=== PATIENT | female | born 1950 | race Caucasian/White ===

== ENCOUNTER 2016-06-29 10:30 | Inpatient (IN) | payer OTHER ==
[~2016-06-29] VITALS: Ht 167.6 cm; Wt 91.4 kg
[~2016-06-29 10:30] MED LIST: CLONIDINE; METFORMIN
[2016-07-06] VITALS (30 sets, daily range): BP systolic 102–168; BP diastolic 61–78; PULSE 82–98; RESP 10–18; Ht 167.6 cm; Wt 91.4 kg
[2016-07-06] MEDS ORDERED: AMPICILLIN/SULB 3 GM/NS (PMX) 100 ML IVPB ONE (07:00)
[2016-07-06] MEDS ORDERED: ACETAMINOPHEN 1000 MG/100 ML IVPB ONE (07:00)
[2016-07-06] MEDS ORDERED: ETOMIDATE 20 MG INJ ONE (07:00)
[2016-07-06 08:26] LABS: BASOPHILS % 0.6 % (0.0-2.0); EOSINOPHILS # 0.3 10^3/ul (0.0-0.5); EOSINOPHILS % 3.9 % (0.0-7.0); HEMATOCRIT 31.1 % (37.0-47.0); HEMOGLOBIN 10.6 g/dl (12.0-16.0); INR 1.03; LYMPHOCYTES # 1.4 10^3/ul (0.8-2.9); LYMPHOCYTES % 15.7 % (15.0-51.0); MEAN CORPUSCULAR HEMOGLOBIN 28.7 pg (29.0-33.0); MEAN CORPUSCULAR VOLUME 84.5 fl (82.0-101.0); MEAN PLATELET VOLUME 8.3 fl (7.4-10.4); MONOCYTE # 0.5 10^3/ul (0.3-0.9); NEUTROPHIL # 6.4 10^3/ul (1.6-7.5); NEUTROPHILS % 73.8 % (39.0-77.0); PLATELET COUNT 332 10^3/UL (140-440); PROTIME 13.5 Sec (12.2-14.2); PT RATIO 1.1; RED BLOOD COUNT 3.68 10^6/ul (4.20-5.40); RED CELL DISTRIBUTION WIDTH 15.2 % (11.5-14.5); UNCORRECTED WBC 8.6 10^3/ul (4.8-10.8); WHITE BLOOD COUNT 8.6 10^3/ul (4.8-10.8)
[2016-07-06 08:27] LABS: PARTIAL THROMBOPLASTIN TIME 29.1 Sec (25.0-35.0)
[2016-07-06] MEDS ORDERED: AMLO-145 PO (08:37)
[2016-07-06] MEDS ORDERED: NIFE60TA7 PO (08:37)
[2016-07-06] MEDS ORDERED: METF1000 PO (08:37)
[2016-07-06] MEDS ORDERED: GLU5XL PO (08:37)
[2016-07-06] MEDS ORDERED: LEVO50TA74 PO (08:37)
[2016-07-06] MEDS ORDERED: CLON-379 PO (08:37)
[2016-07-06] MEDS ORDERED: LOVA40TA PO (08:37)
[2016-07-06 08:39] LABS: CONDITION 1; LH ANALYZER COMMENTS 1
[2016-07-06] MEDS ORDERED: MIDAZOLAM 1 MG/ML 2 ML INJ ONE (08:58)
[2016-07-06] MEDS ORDERED: ROCURONIUM 50 MG INJ ONE (08:58)
[2016-07-06] MEDS ORDERED: PROPOFOL 100 ML ONE (08:58)
[2016-07-06] MEDS ORDERED: morphine SULFATE/PF (10 MG/10 ML) INJ ONE (08:58)
[2016-07-06 09:00] LABS: CALCIUM 9.7 mg/dl (8.4-10.2); CREATININE 1.01 mg/dl (0.44-1.00); POTASSIUM 4.5 mmol/L (3.5-5.1)
[2016-07-06] MEDS ORDERED: ESMOLOL 10 ML ONE (09:36)
--- NOTE | 2016-07-06 09:38 | RADRPT ---
PROCEDURE: XR Chest AP portable CLINICAL INDICATION: Preop TECHNIQUE: An AP portable radiograph of the chest was submitted. COMPARISON: None. FINDINGS: Support Hardware: None Cardiovascular: The cardiovascular silhouette appears unremarkable. Lung Tabares: The lung tabares appear clear with no nodule, alveolar infiltrate, for a interstitial pr ominence evident. Pleural Spaces: No pneumothorax or pleural effusion is identified. Osseous Structures: The osseous structures appear intact. Soft Tissues: The soft tissues appear generous. IMPRESSION: Unremarkable portable chest. Physician Jackie Date Time Electronically viewed and signed by Chico Rothman Physician on 07/06/2016 09:38 RH/
[2016-07-06] MEDS: SOD CHLORIDE 0.9% 1,000 ML IV SCH ×2 (10:08→20:06)
[2016-07-06] MEDS ORDERED: PHENYLephrine (100 MCG/ML) 5ML SYG ONE ×2 (10:08→10:49)
[2016-07-06] MEDS ORDERED: ROPIVACAINE 0.2% 20 ML VIAL ONE (10:31)
[2016-07-06] MEDS ORDERED: FAMOTIDINE 20 MG INJ ONE (11:17)
[2016-07-06] MEDS ORDERED: ONDANSETRON 4 MG INJ ONE (11:17)
[2016-07-06] MEDS ORDERED: METOCLOPRAMIDE 10 MG INJ ONE (11:17)
[2016-07-06] MEDS ORDERED: DEXAMETHASONE 4 MG/ML 1 ML INJ ONE (11:17)
[2016-07-06] MEDS ORDERED: NEOSTIGMINE 3 MG/3 ML SYRINGE ONE (11:39)
[2016-07-06] MEDS ORDERED: GLYCOPYRROLATE 0.4 MG INJ ONE (11:39)
[2016-07-06] MEDS ORDERED: hydrALAzine 20 MG INJ IV PRN ×2 (12:00→13:30)
[2016-07-06] MEDS ORDERED: EPHEDrine SULFATE 50 MG/5 ML SYG IV PRN (12:00)
[2016-07-06] MEDS ORDERED: morphine 1 MG/ML 30 ML (PCA) IV SCH (12:00)
[2016-07-06] MEDS ORDERED: ONDANSETRON 4 MG INJ IV PRN ×3 (12:00)
[2016-07-06] MEDS ORDERED: NALBUPHINE HCL (10 MG/1 ML) INJ IV PRN (12:00)
[2016-07-06] MEDS ORDERED: morphine (1 MG/ML) 10ML SYRINGE IV PRN ×3 (12:00)
[2016-07-06] MEDS ORDERED: ALBUMIN HUMAN 5% 250 ML IV PRN (12:00)
[2016-07-06] MEDS ORDERED: HYDROmorphONE 1 MG/ML SYG IV PRN ×2 (12:00)
[2016-07-06] MEDS ORDERED: METOCLOPRAMIDE 10 MG INJ IV PRN (12:00)
[2016-07-06] MEDS ORDERED: NALOXONE (0.4 MG/ML) INJ IV PRN (12:00)
[2016-07-06] MEDS ORDERED: LABETALOL HCL 20MG INJ IV PRN (12:00)
[2016-07-06] MEDS ORDERED: morphine 4 MG/ML VIAL IV PRN (12:00)
[2016-07-06] MEDS ORDERED: morphine 2 MG INJ IV PRN (12:00)
[2016-07-06] MEDS ORDERED: ACETAMINOPHEN 1000MG/100ML IV 100 ML IVPB PRN (12:00)
[2016-07-06] MEDS ORDERED: DIPHENHYDRAMINE 50 MG INJ IV PRN ×2 (12:00)
[2016-07-06] MEDS ORDERED: HYDROmorphONE (0.2 MG/ML) 10ML SYG IV PRN ×3 (12:00)
[2016-07-06] MEDS: FENTAnyl 2MCG/ML-ROPIV 0.2% 100 ML BAG EPI SCH (12:50)
--- NOTE | 2016-07-06 12:55 | OPR ---
DATE OF OPERATION: 07/06/2016 PREOPERATIVE DIAGNOSIS: Nearly obstructing left colon cancer. POSTOPERATIVE DIAGNOSIS: Nearly obstructing left colon cancer. OPERATION PERFORMED: Left colon resection with mobilization of the splenic flexure. SURGEON: Jacinto Grant MD SCREEN PRINTING PASTER: Sandor Purvis MD ANESTHESIA: General. ANESTHESIOLOGIST: Dr. More INDICATIONS FOR PROCEDURE: The patient is an unfortunate 65-year-old female who was diagnosed with a left colon cancer in March and had evidence of hepatic metastasis. It is unclear why she did no t receive treatment sooner, but eventually she presented to Dr. Grant for consideration of colon res ection and possible ablation of the liver lesion. However, repeat CAT scan showed that the lesion w as not amenable to ablation, therefore, the patient was counseled as to the need for resection of th e left colon to be followed by chemotherapy. She consented and was scheduled for surgery. DESCRIPTION OF PROCEDURE: The patient was brought to the operating theater, placed under general en dotracheal tube anesthesia after first placing an epidural catheter. After placing the patient unde r anesthesia, the abdomen was prepped and draped in usual sterile fashion. A generous midline incis ion was made from a point approximately 5 cm above the umbilicus to a 0.3 cm below it. Subcutaneous tissue was dissected with cautery down to the anterior rectus sheath. The linea alba was incised a nd the abdomen was entered without difficulty. The Paulie trocar was then placed in standard fashio n and excellent exposure was obtained. The left colon was mobilized by incising the left white line of Toldt. The tumor became obvious and palpable. It was also indicated by previous tattooing with Amy ink. It was in the proximal portion of the descending colon. This required mobilization of the splenic flexure. This took place with a combination of cautery and the LigaSure device. With t he left colon fully mobilized and the tumor now able to be completely palpated, proximal points of t ransection both proximal and distal to the tumor were identified. The mesentery was prepared at the se sites and the colon was transected approximately 3-4 cm proximal to the tumor and 5 to 6 cm dista l to it. The mesentery was divided using the LigaSure device. Specimen was removed and attending pathologist, Dr. Venkat Moseley and then entered the room and pe rformed gross analysis. The margins were grossly clear. Therefore, preparations for reanastomosis were made. The proximal descending colon was brought in close approximation with the distal portion of the descending colon and 3-0 silk stay sutures were then used to approximate the 2 portions of b owel. Dual enterotomies were made. Anastomosis was created with the AGNIESZKA stapler. The staple line was inspected. There was no evidence of bleeding. The anastomosis was then completed with a TA sta pler in a standard fashion. Additional reinforcement of the anastomosis then took place with severa l 3-0 silk pop off sutures. The abdomen was irrigated. There was no evidence of ongoing bleeding. Lap, sponge and instrument counts were correct. Therefore, preparations for closure were made. Th e Bookwalter retractor was removed and the abdomen was closed with #1 looped PDS sutures in running fashion. Subcutaneous tissue was irrigated with Betadine, and the skin incision was reapproximated with skin srikanth. The patient was then transported in stable condition to the recovery room. TOTAL BLOOD LOSS: Approximately 3 mL. COMPLICATIONS: None. Dictated By: JACINTO VALENTINO/JOSE Conf#: [id number] DID#: [id number]
[2016-07-06] MEDS: D5W-0.45 NACL + KCL 20 MEQ 1,000 ML IV SCH ×2 (14:19→20:13)
--- NOTE | 2016-07-06 14:26 | HP ---
DATE OF ADMISSION: 07/06/2016 HISTORY OF PRESENT ILLNESS: The patient is a 65-year-old female with past medical history positive for hypertension, diabetes mellitus, hypothyroidism and hyperlipidemia. The patient underwent a rou baljeet colonoscopy and was noted a large mass in March 2016 which appeared to a well-differentiated adenocarcinoma. The patient was evaluated by Dr. Grant in surgical consultation and patient was bro ught to the hospital and underwent a colon resection with mobilization of splenic flexure for adenoc arcinoma of the transverse colon. Postoperatively, the patient has experienced some pain and will b e admitted for further evaluation and management to medical/surgical floor. PAST MEDICAL HISTORY: Positive for hypertension, hyperlipidemia, diabetes mellitus, hypothyroidism. PAST SURGICAL HISTORY: The patient denies having any surgeries in the past. FAMILY HISTORY: The patient's mother of a stroke. SOCIAL HISTORY: The patient lives at home with family. The patient is a former smoker; however, qu it many years ago. The patient denies any illicit drug use. Denies any alcohol use. ALLERGIES: NO KNOWN ALLERGIES. MEDICATIONS ON ADMISSION: 1. Amlodipine. 2. Clonidine. 3. Glipizide. 4. Levothyroxine. 5. Metformin. 6. Nifedipine. 7. Lovastatin. REVIEW OF SYSTEMS: A 12-point review of systems is negative unless what is mentioned in the HPI. PHYSICAL EXAMINATION: GENERAL: A well-developed, obese female, currently is lethargic, but easily arousable, awake to nam e and situation. VITAL SIGNS: Temperature is 98.8, pulse is 88, blood pressure 136/74, respiratory rate 14, oxygen s aturation is 93% on 2 liters nasal cannula. HEENT: Head is atraumatic, normocephalic. Pupils equal, round, reactive to light and accommodation . Oral mucosa is pink and moist. The patient is hard of hearing and uses hearing aids at home. NECK: Supple, no cervical lymphadenopathy, no thyromegaly. CHEST: Clear bilaterally. There are no rhonchi, wheezes, rales noted. CARDIOVASCULAR: Normal S1, S2. No murmurs, gallops, clicks, rubs noted. ABDOMEN: Status post surgery with a midline incision intact with dressing. Bowel, bowel sounds hyp oactive. EXTREMITIES: There is no edema, clubbing, cyanosis. Pulses equal bilaterally 2+. SKIN: There is rash, petechiae noted. NEUROLOGIC: Patient is awake, alert and oriented x2. No focal deficits noted. Motor strength 5/5 in all extremities. LABORATORY DATA: On admission, CBC: White blood cells 8.6, hemoglobin 10.6, hematocrit 31.1, plate lets 333. Chemistry: Sodium is 144, potassium 4.5, chloride 106, carbon dioxide 24, anion gap 19, BUN is 11, creatinine 1.01. Glucose 123, calcium 9.7. PT 13.5, INR is 1.03, PTT is 29.1. IMAGING: Chest x-ray is unremarkable. ASSESSMENT AND PLAN: 1. Nearly obstructing transverse colon adenocarcinoma status post left colon resection with mobiliz ation of splenic flexure by Dr. Grant. The patient currently has NG tube to suctioning an epidural pain management. We will continue IV fluids, sequential compression devices for deep venous thrombo sis prophylaxis, start incentive spirometer 1 hour while patient is awake. The patient also receive d postoperative antibiotics. Continue to follow up surgical recommendations. 2. Diabetes mellitus type 2. We will continue mild algorithm sliding scale with Accu-Cheks q.6 julián rs. 3. Hypertension. Continue to monitor blood pressure. Hydralazine p.r.n. for systolic blood pressu re above 170. 4. Hypothyroidism. Continue the patient's Synthroid. Will switch to IV dose while patient is n.p. o. 5. Hyperlipidemia by history. 6. We will continue Zofran p.r.n. for nausea and morphine p.r.n. for pain. Further recommendations based on clinical course. Plan of care discussed with Dr. Baker. Dictated By: ADAM HOOVER MANAGER DIALYSIS for [facility] BAKER MD SR/NTS Conf#: [id number] DID#: [id number]
[2016-07-06] MEDS: INSULIN ASPART [NOVOLOG] 3 ML PEN SC SCH ×2 (18:26→20:15)
[2016-07-07] MEDS: ACCUCHECK XX SCH (02:00)
[2016-07-07 04:00] VITALS: BP 145/71; PULSE 97; RESP 19
[2016-07-07] MEDS: D5W-0.45 NACL + KCL 20 MEQ 1,000 ML IV SCH ×3 (05:23→19:54)
[2016-07-07] MEDS: LEVOTHYROXINE 100 MCG VIAL IV SCH (06:36)
[2016-07-07 07:39] VITALS: BP 143/67; RESP 18
[2016-07-07] MEDS: INSULIN ASPART [NOVOLOG] 3 ML PEN SC SCH ×4 (09:38→20:09)
[2016-07-07] MEDS: FENTAnyl 2MCG/ML-ROPIV 0.2% 100 ML BAG EPI SCH (09:38)
[2016-07-07 10:44] LABS: BASOPHILS % 0.3 % (0.0-2.0); EOSINOPHILS % 0.3 % (0.0-7.0); HEMOGLOBIN 9.8 g/dl (12.0-16.0); LYMPHOCYTES # 1.1 10^3/ul (0.8-2.9); MEAN CORPUSCULAR HEMOGLOBIN 28.5 pg (29.0-33.0); MEAN CORPUSCULAR HGB CONC 32.8 g/dl (32.0-37.0); MEAN CORPUSCULAR VOLUME 86.8 fl (82.0-101.0); MONOCYTE # 0.8 10^3/ul (0.3-0.9); MONOCYTES % 6.8 % (0.0-11.0); NEUTROPHILS % 83.6 % (39.0-77.0); PLATELET COUNT 317 10^3/UL (140-440); RED BLOOD COUNT 3.45 10^6/ul (4.20-5.40); RED CELL DISTRIBUTION WIDTH 14.7 % (11.5-14.5)
[2016-07-07 11:02] LABS: CONDITION 1; LH ANALYZER COMMENTS 1
[2016-07-07 11:06] LABS: POTASSIUM 4.8 mmol/L (3.5-5.1)
[2016-07-07 11:09] LABS: CREATININE 0.96 mg/dl (0.44-1.00)
[2016-07-07 11:10] LABS: CALCIUM 9.1 mg/dl (8.4-10.2); MAGNESIUM 1.3 mg/dl (1.7-2.5); PHOSPHORUS 2.7 mg/dl (2.5-4.9)
[2016-07-07 11:32] LABS: INR 1.17; PT RATIO 1.2
[2016-07-07 11:33] LABS: PARTIAL THROMBOPLASTIN TIME 29.4 Sec (25.0-35.0)
--- NOTE | 2016-07-07 17:24 | PN ---
Date/Time of Note Date/Time of Note DATE: 07/07/16 TIME: 17:20 Assessment/Plan VTE Prophylaxis VTE Prophylaxis Intervention: SCD's Lines/Catheters IV Catheter Type (from Nrs): Peripheral IV Urinary Cath still in place: Yes Reason Cath still needed: urinary retention Assessment/Plan Chief Complaint/Hosp Course ASSESSMENT AND PLAN: 1. 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 Grant. The patient currently has NG tube to suctioning an epidural pain management. Continue IV fluids, start incentive spirometer 1 hour while patient is awake. 2. Diabetes mellitus type 2. We will continue mild algorithm sliding scale with Accu-Cheks q.6 hours. 3. Hypertension. Continue to monitor blood pressure. Hydralazine p.r.n. for systolic blood pressure above 170. 4. Hypothyroidism. Continue the patient's Synthroid. 5. Hyperlipidemia by history. 6. Hypomagnesemia, will replace magnesium. Sequential compression devices for deep venous thrombosis prophylaxis. Further recommendations based on clinical course. Plan of care discussed with Dr. Baker. Problems: Subjective 24 Hr Interval Summary Free Text/Dictation Patient pain is well controlled, denies nausea vomiting, hypoactive bowel sounds , no flatus. Patient is still continued on epidural analgesia. Exam/Review of Systems Vital Signs Vitals Vital Signs Date Time Temp Pulse Resp B/P Pulse Ox O2 Delivery O2 Flow Rate FiO2 07/07/16 07:39 98.2 80 18 143/67 97 07/07/16 04:00 Nasal Cannula 2.0 Intake and Output 07/06/16 07/06/16 07/07/16 15:00 23:00 07:00 Intake Total 1754 ml 635 ml 1417 ml Output Total 1300 ml 350 ml 1000 ml Balance 454 ml 285 ml 417 ml Exam GENERAL: A well-developed, obese female, awake alert. HEENT: Head is atraumatic, normocephalic. NECK: Supple, no cervical lymphadenopathy, no thyromegaly. CHEST: Clear bilaterally. There are no rhonchi, wheezes, rales noted. CARDIOVASCULAR: Normal S1, S2. No murmurs, gallops, clicks, rubs noted. ABDOMEN: Status post surgery with a midline incision intact with dressing. Bowel, bowel sounds hypoactive. EXTREMITIES: There is no edema, clubbing, cyanosis. Pulses equal bilaterally 2 +. SKIN: There is rash, petechiae noted. NEUROLOGIC: Patient is awake, alert and oriented x4 Results Result Diagram: 07/07/16 1025 07/07/16 1024 Results 24 hrs Laboratory Tests Test 07/06/16 17:42 07/06/16 20:12 07/07/16 01:53 07/07/16 07:56 Bedside Glucose 231 H 235 H 212 169 Test 07/07/16 10:24 07/07/16 10:25 07/07/16 11:54 Activated Partial Thromboplast Time 29.4 Anion Gap 15 Blood Urea Nitrogen 9 Calcium Level 9.1 Carbon Dioxide Level 24 Chloride Level 103 Creatinine 0.96 Glucose Level 153 INR International Normalized Ratio 1.17 Magnesium Level 1.3 L Phosphorus Level 2.7 Potassium Level 4.8 Prothrombin Time 15.0 H Prothrombin Time Ratio 1.2 Sodium Level 137 Basophils # 0.0 Basophils % 0.3 Blood Morphology Comment Eosinophils # 0.0 Eosinophils % 0.3 Hematocrit 30.0 L Hemoglobin 9.8 L Lymphocytes # 1.1 Lymphocytes % 9.0 L Mean Corpuscular Hemoglobin 28.5 L Mean Corpuscular Hemoglobin Concent 32.8 Mean Corpuscular Volume 86.8 Mean Platelet Volume 8.0 Monocytes # 0.8 Monocytes % 6.8 Neutrophils # 10.0 H Neutrophils % 83.6 H Nucleated Red Blood Cells # 0.0 Nucleated Red Blood Cells % 0.0 Platelet Count 317 Red Blood Count 3.45 L Red Cell Distribution Width 14.7 H White Blood Count 12.0 #H Bedside Glucose 161 Medications Medications Current Medications Hydromorphone HCl (Dilaudid) 0.2 mg Q2H PRN IV PAIN LEVEL 1-5; Start 07/06/16 at 12:00 Hydromorphone HCl (Dilaudid) 0.4 mg Q2H PRN IV PAIN LEVEL 6-10; Start 07/06/16 at 12:00 Morphine Sulfate (morphine) 2 mg Q2H PRN IV PAIN LEVEL 1-5; Start 07/06/16 at 12:00 Morphine Sulfate (morphine) 4 mg Q2H PRN IV PAIN LEVEL 6-10; Start 07/06/16 at 12:00 Diphenhydramine HCl (Benadryl) 25 mg Q4H PRN IV PRURITUS; Start 07/06/16 at 12: 00 Nalbuphine HCl (Nubain) 10 mg Q4H PRN IV PRURITUS; Start 07/06/16 at 12:00 Ondansetron HCl (Zofran Inj) 4 mg Q6H PRN IV NAUSEA AND/OR VOMITING; Start at 12:00 Naloxone HCl (Narcan) 0.2 mg Q2M PRN IV FOR RESP RATE 8 OR LESS; Start at 12:00 Ondansetron HCl (Zofran Inj) 4 mg Q6H PRN IV NAUSEA AND/OR VOMITING; Start at 12:00 Morphine Sulfate 2 MG/HR CONTINUOUS RATE 2... Q4PCA IV ; Start 07/06/16 at 12: 00 Potassium Chloride/Dextrose/ Sod Cl 1,000 ml @ 125 mls/hr Q8H IV Last administered on 07/07/16 14:48; Admin Dose 125 MLS/HR; Start 07/06/16 at 11:54 Acetaminophen (Ofirmev 1000mg/ 100ml Iv) 100 ml @ 400 mls/hr Q6H PRN IVPB PAIN ; Start 07/06/16 at 12:00 Diagnostic Test (Pha) (Accucheck) 1 ea 02 XX ; Start 07/07/16 at 02:00 Hydralazine HCl (Apresoline) 10 mg Q6H PRN IV SBP>170; Start 07/06/16 at 13:30 Levothyroxine Sodium (Synthroid Iv) 25 mcg DAILY@06 IV Last administered on 06:36; Admin Dose 25 MCG; Start 07/07/16 at 06:00 ADAM HOOVER Jul 07, 2016 17:24
[2016-07-07] MEDS ORDERED: MAGNESIUM SULFATE 2 GM/50 ML 50 ML IVPB ONE (17:30)
--- NOTE | 2016-07-07 19:00 | PN ---
DATE: 07/07/2016 SUBJECTIVE: Postop day #1. Does not have any complaints. No nausea, no vomiting. Has been in the bed. The patient has epidural. OBJECTIVE: VITAL SIGNS: 98.2, 80, 18, 143/67, 97 saturation on 2 liter nasal cannula. LABORATORY DATA: WBC is 12,000 with 83% segmented, hemoglobin 9.8, hematocrit 30. Chemistry is doug ost normal. Potassium 4.8. LINES: IV is running. NG tube in place. I manipulated, it is functioning. Huddleston catheter in plac e. ABDOMEN: Soft. Bowel sounds absent. EXTREMITIES: No calf tenderness. ASSESSMENT: Postoperative day #1 from left hemicolectomy. The patient is doing fine and is stable. Pain controlled with epidural. PLAN: Continue current care. Dictated By: CAROLYNE HERNANDEZ MD PS/NTS Conf#: [id number] DID#: [id number] CC: PEARL SEQUEIRA MD;*EndCC*
--- NOTE | 2016-07-07 20:36 | CONS ---
Date/Time of Note Date/Time of Note DATE: 07/07/16 TIME: 20:28 Consultation Date/Type/Reason Admit Date/Time Jul 06, 2016 at 06:48 Initial Consult Date 07/06/16 Type of Consultation: Anesthesia Reason for Consultation Colon cancer, right hemicolectomy 24 HR Interval Summary Free Text/Dictation Patient is a 65 year old female with diagnosed colon cancer, she was scheduled for Exploratory Laparatomy and Right Hemicolectomy. Thoracic Epidural Continous Catheter was placed for post operative pain management and also Epidural Duramorph was given to manage post-op pain, and General anesthesia was selected for surgery. Patient is doing very well today which is a POD#1, epidural catheter is intact and dressing is clean and intact, patient is very comfortable and complained an sporadic pain but very mild which is not persistent, she is able to sleep, no nausea or vomiting no sensory or motor deficit. No apnea noted, vital signs are stable and she is been afebrile. Continous epidural dose is increased to 5cc/h and she will be followed up. Exam/Review of Systems Vital Signs Vitals Vital Signs Date Time Temp Pulse Resp B/P Pulse Ox O2 Delivery O2 Flow Rate FiO2 07/07/16 07:39 98.2 80 18 143/67 97 07/07/16 04:00 Nasal Cannula 2.0 Intake and Output 07/06/16 07/06/16 07/07/16 15:00 23:00 07:00 Intake Total 1754 ml 635 ml 1417 ml Output Total 1300 ml 350 ml 1000 ml Balance 454 ml 285 ml 417 ml Results Result Diagram: 07/07/16 1025 07/07/16 1024 Results 24 hrs Laboratory Tests Test 07/07/16 01:53 07/07/16 07:56 07/07/16 10:24 07/07/16 10:25 Bedside Glucose 212 169 Activated Partial Thromboplast Time 29.4 Anion Gap 15 Blood Urea Nitrogen 9 Calcium Level 9.1 Carbon Dioxide Level 24 Chloride Level 103 Creatinine 0.96 Glucose Level 153 INR International Normalized Ratio 1.17 Magnesium Level 1.3 L Phosphorus Level 2.7 Potassium Level 4.8 Prothrombin Time 15.0 H Prothrombin Time Ratio 1.2 Sodium Level 137 Basophils # 0.0 Basophils % 0.3 Blood Morphology Comment Eosinophils # 0.0 Eosinophils % 0.3 Hematocrit 30.0 L Hemoglobin 9.8 L Lymphocytes # 1.1 Lymphocytes % 9.0 L Mean Corpuscular Hemoglobin 28.5 L Mean Corpuscular Hemoglobin Concent 32.8 Mean Corpuscular Volume 86.8 Mean Platelet Volume 8.0 Monocytes # 0.8 Monocytes % 6.8 Neutrophils # 10.0 H Neutrophils % 83.6 H Nucleated Red Blood Cells # 0.0 Nucleated Red Blood Cells % 0.0 Platelet Count 317 Red Blood Count 3.45 L Red Cell Distribution Width 14.7 H White Blood Count 12.0 #H Test 07/07/16 11:54 07/07/16 17:16 07/07/16 20:03 Bedside Glucose 161 123 120 Medications Medications Current Medications Hydromorphone HCl (Dilaudid) 0.2 mg Q2H PRN IV PAIN LEVEL 1-5; Start 07/06/16 at 12:00 Hydromorphone HCl (Dilaudid) 0.4 mg Q2H PRN IV PAIN LEVEL 6-10; Start 07/06/16 at 12:00 Morphine Sulfate (morphine) 2 mg Q2H PRN IV PAIN LEVEL 1-5; Start 07/06/16 at 12:00 Morphine Sulfate (morphine) 4 mg Q2H PRN IV PAIN LEVEL 6-10; Start 07/06/16 at 12:00 Diphenhydramine HCl (Benadryl) 25 mg Q4H PRN IV PRURITUS; Start 07/06/16 at 12: 00 Nalbuphine HCl (Nubain) 10 mg Q4H PRN IV PRURITUS; Start 07/06/16 at 12:00 Ondansetron HCl (Zofran Inj) 4 mg Q6H PRN IV NAUSEA AND/OR VOMITING; Start at 12:00 Naloxone HCl (Narcan) 0.2 mg Q2M PRN IV FOR RESP RATE 8 OR LESS; Start at 12:00 Ondansetron HCl (Zofran Inj) 4 mg Q6H PRN IV NAUSEA AND/OR VOMITING; Start at 12:00 Morphine Sulfate 2 MG/HR CONTINUOUS RATE 2... Q4PCA IV ; Start 07/06/16 at 12: 00 Potassium Chloride/Dextrose/ Sod Cl 1,000 ml @ 125 mls/hr Q8H IV Last administered on 07/07/16t 14:48; Admin Dose 125 MLS/HR; Start 07/06/16 at 11:54 Acetaminophen (Ofirmev 1000mg/ 100ml Iv) 100 ml @ 400 mls/hr Q6H PRN IVPB PAIN ; Start 07/06/16 at 12:00 Diagnostic Test (Pha) (Accucheck) 1 ea 02 XX ; Start 07/07/16 at 02:00 Hydralazine HCl (Apresoline) 10 mg Q6H PRN IV SBP>170; Start 07/06/16 at 13:30 Levothyroxine Sodium (Synthroid Iv) 25 mcg DAILY@06 IV Last administered on t 06:36; Admin Dose 25 MCG; Start 07/07/16 at 06:00 ROYCE BLACKMON MD Jul 07, 2016 20:36
[2016-07-07] MEDS ORDERED: FENTAnyl 2MCG/ML-ROPIV 0.2% 100 ML BAG EPI SCH (23:30)
[2016-07-07] MEDS ORDERED: NALOXONE (0.4 MG/ML) INJ IV PRN (23:30)
[2016-07-07 23:40] VITALS: BP 149/75; PULSE 94; RESP 18
[2016-07-08] VITALS (10 sets, daily range): BP systolic 116–177; BP diastolic 62–84; PULSE 95–108; RESP 17–20
[2016-07-08] MEDS: ACCUCHECK XX SCH (01:42)
[2016-07-08] MEDS: D5W-0.45 NACL + KCL 20 MEQ 1,000 ML IV SCH ×3 (03:45→17:52)
[2016-07-08] MEDS: FENTAnyl 2MCG/ML-ROPIV 0.2% 100 ML BAG EPI SCH ×2 (03:46→18:52)
[2016-07-08] MEDS: LEVOTHYROXINE 100 MCG VIAL IV SCH (04:50)
--- NOTE | 2016-07-08 06:58 | CONS ---
Date/Time of Note Date/Time of Note DATE: 07/08/16 TIME: 06:54 Consultation Date/Type/Reason Admit Date/Time Jul 06, 2016 at 06:48 Initial Consult Date 07/06/16 Type of Consultation: Anesthesia Reason for Consultation Colectomy 24 HR Interval Summary Free Text/Dictation POD#2 HISTORY OF PRESENT ILLNESS: The patient is a 65-year-old female with past medical history positive for hypertension, diabetes mellitus, hypothyroidism and hyperlipidemia. The patient underwent a routine colonoscopy and was noted a large mass in March 2016 which appeared to a well-differentiated adenocarcinoma. The patient was evaluated by Dr. 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 Postoperatively, the patient has experienced some pain and will be admitted for further evaluation and management to medical/surgical floor. PAST MEDICAL HISTORY: Positive for hypertension, hyperlipidemia, diabetes mellitus, hypothyroidism. PAST SURGICAL HISTORY: The patient denies having any surgeries in the past. FAMILY HISTORY: The patient's mother of a stroke. SOCIAL HISTORY: The patient lives at home with family. The patient is a former smoker; however, quit many years ago. The patient denies any illicit drug use. Denies any alcohol use. ALLERGIES: NO KNOWN ALLERGIES. MEDICATIONS ON ADMISSION: 1. Amlodipine. 2. Clonidine. 3. Glipizide. 4. Levothyroxine. 5. Metformin. 6. Nifedipine. 7. Lovastatin. She is doing well, POD#2 Thoracic Epidural catheter in place, catheter is clean and dressing is intact, Infusion rate is 5cc/h, pain is well controlled, no sensory or motor deficit, no apnea noted, no itching or nausea or vomiting reported. vital signs are stable and she is afebrile. Epidural Duramorph was given for post-op pain control. patient will be followed up. will continue the epidural infusion withe the same rate of 5cc/h. Exam/Review of Systems Vital Signs Vitals Vital Signs Date Time Temp Pulse Resp B/P Pulse Ox O2 Delivery O2 Flow Rate FiO2 07/08/16 06:12 98.8 107 20 157/74 96 Nasal Cannula 2.0 Intake and Output 07/07/16 07/07/16 07/08/16 15:00 23:00 07:00 Intake Total 12 ml 1628 ml Output Total 0 ml 1005 ml 1800 ml Balance 0 ml -993 ml -172 ml Results Result Diagram: 07/07/16 1025 07/07/16 1024 Results 24 hrs Laboratory Tests Test 07/07/16 07:56 07/07/16 10:24 07/07/16 10:25 07/07/16 11:54 Bedside Glucose 169 161 Activated Partial Thromboplast Time 29.4 Anion Gap 15 Blood Urea Nitrogen 9 Calcium Level 9.1 Carbon Dioxide Level 24 Chloride Level 103 Creatinine 0.96 Glucose Level 153 INR International Normalized Ratio 1.17 Magnesium Level 1.3 L Phosphorus Level 2.7 Potassium Level 4.8 Prothrombin Time 15.0 H Prothrombin Time Ratio 1.2 Sodium Level 137 Basophils # 0.0 Basophils % 0.3 Blood Morphology Comment Eosinophils # 0.0 Eosinophils % 0.3 Hematocrit 30.0 L Hemoglobin 9.8 L Lymphocytes # 1.1 Lymphocytes % 9.0 L Mean Corpuscular Hemoglobin 28.5 L Mean Corpuscular Hemoglobin Concent 32.8 Mean Corpuscular Volume 86.8 Mean Platelet Volume 8.0 Monocytes # 0.8 Monocytes % 6.8 Neutrophils # 10.0 H Neutrophils % 83.6 H Nucleated Red Blood Cells # 0.0 Nucleated Red Blood Cells % 0.0 Platelet Count 317 Red Blood Count 3.45 L Red Cell Distribution Width 14.7 H White Blood Count 12.0 #H Test 07/07/16 17:16 07/07/16 20:03 Bedside Glucose 123 120 Medications Medications Current Medications Hydromorphone HCl (Dilaudid) 0.2 mg Q2H PRN IV PAIN LEVEL 1-5; Start 07/06/16 at 12:00 Hydromorphone HCl (Dilaudid) 0.4 mg Q2H PRN IV PAIN LEVEL 6-10; Start 07/06/16 at 12:00 Morphine Sulfate (morphine) 2 mg Q2H PRN IV PAIN LEVEL 1-5; Start 07/06/16 at 12:00 Morphine Sulfate (morphine) 4 mg Q2H PRN IV PAIN LEVEL 6-10; Start 07/06/16 at 12:00 Diphenhydramine HCl (Benadryl) 25 mg Q4H PRN IV PRURITUS; Start 07/06/16 at 12: 00 Nalbuphine HCl (Nubain) 10 mg Q4H PRN IV PRURITUS; Start 07/06/16 at 12:00 Ondansetron HCl (Zofran Inj) 4 mg Q6H PRN IV NAUSEA AND/OR VOMITING; Start at 12:00 Naloxone HCl (Narcan) 0.2 mg Q2M PRN IV FOR RESP RATE 8 OR LESS; Start at 12:00 Ondansetron HCl (Zofran Inj) 4 mg Q6H PRN IV NAUSEA AND/OR VOMITING; Start at 12:00 Morphine Sulfate 2 MG/HR CONTINUOUS RATE 2... Q4PCA IV ; Start 07/06/16 at 12: 00 Potassium Chloride/Dextrose/ Sod Cl 1,000 ml @ 125 mls/hr Q8H IV Last administered on 07/08/16 03:45; Admin Dose 125 MLS/HR; Start 07/06/16 at 11:54 Acetaminophen (Ofirmev 1000mg/ 100ml Iv) 100 ml @ 400 mls/hr Q6H PRN IVPB PAIN Last administered on 07/08/16 05:05; Admin Dose 400 MLS/HR; Start 07/06/16 at 12:00 Diagnostic Test (Pha) (Accucheck) 1 ea 02 XX ; Start 07/07/16 at 02:00 Hydralazine HCl (Apresoline) 10 mg Q6H PRN IV SBP>170 Last administered on 05:01; Admin Dose 10 MG; Start 07/06/16 at 13:30 Levothyroxine Sodium (Synthroid Iv) 25 mcg DAILY@06 IV Last administered on 07/08 04:50; Admin Dose 25 MCG; Start 07/07/16 at 06:00 Naloxone HCl (Narcan) 0.2 mg Q2M PRN IV FOR RESP RATE 8 OR LESS; Start at 23:30 ROYCE BLACKMON MD Jul 08, 2016 06:58
--- NOTE | 2016-07-08 09:23 | RADRPT ---
Vent Rate: 93 bpm RR Interval: 0 msec [place] Interval: 196 msec QRS Duration: 74 msec QT Interval: 366 msec QTC Interval: 455 msec P-R-T [place]: 39 - -10 - 41 degrees Normal sinus rhythm Cannot rule out Anterior infarct , age undetermined Abnormal ECG Electronically Signed By: Beau Durbin [id number]
[2016-07-08] MEDS: INSULIN ASPART [NOVOLOG] 3 ML PEN SC SCH ×4 (09:36→20:33)
[2016-07-08 10:01] LABS: INR 1.13; PROTIME 14.5 Sec (12.2-14.2); PT RATIO 1.1
[2016-07-08 10:02] LABS: PARTIAL THROMBOPLASTIN TIME 30.9 Sec (25.0-35.0)
[2016-07-08 10:04] LABS: POTASSIUM 4.4 mmol/L (3.5-5.1)
[2016-07-08 10:07] LABS: CREATININE 0.96 mg/dl (0.44-1.00)
[2016-07-08 10:08] LABS: CALCIUM 9.1 mg/dl (8.4-10.2); MAGNESIUM 1.6 mg/dl (1.7-2.5); PHOSPHORUS 3.2 mg/dl (2.5-4.9)
[2016-07-08] MEDS: hydrALAzine 20 MG INJ IV PRN ×2 (10:20→20:33)
[2016-07-08 11:01] LABS: BASOPHILS % 0.3 % (0.0-2.0); EOSINOPHILS # 0.2 10^3/ul (0.0-0.5); EOSINOPHILS % 1.6 % (0.0-7.0); HEMOGLOBIN 10.4 g/dl (12.0-16.0); LYMPHOCYTES # 1.3 10^3/ul (0.8-2.9); LYMPHOCYTES % 11.7 % (15.0-51.0); MEAN CORPUSCULAR HEMOGLOBIN 28.6 pg (29.0-33.0); MEAN CORPUSCULAR HGB CONC 32.7 g/dl (32.0-37.0); MEAN CORPUSCULAR VOLUME 87.5 fl (82.0-101.0); MEAN PLATELET VOLUME 8.9 fl (7.4-10.4); MONOCYTE # 0.7 10^3/ul (0.3-0.9); MONOCYTES % 6.9 % (0.0-11.0); NEUTROPHIL # 8.7 10^3/ul (1.6-7.5); NEUTROPHILS % 79.5 % (39.0-77.0); PLATELET COUNT 308 10^3/UL (140-440); RED BLOOD COUNT 3.65 10^6/ul (4.20-5.40); RED CELL DISTRIBUTION WIDTH 14.4 % (11.5-14.5); UNCORRECTED WBC 10.9 10^3/ul (4.8-10.8); WHITE BLOOD COUNT 10.9 10^3/ul (4.8-10.8)
[2016-07-08 11:05] LABS: CONDITION 1
[2016-07-08] MEDS ORDERED: CLONIDINE 0.1 MG/24 HR PATCH TRANSDERM SCH (12:00)
[2016-07-08] MEDS ORDERED: MAGNESIUM SULFATE 2 GM/50 ML 50 ML IVPB ONE (12:00)
--- NOTE | 2016-07-08 13:16 | PN ---
Date/Time of Note Date/Time of Note DATE: 07/08/16 TIME: 13:14 Assessment/Plan VTE Prophylaxis VTE Prophylaxis Intervention: SCD's Lines/Catheters IV Catheter Type (from Nrs): Peripheral IV Urinary Cath still in place: Yes Reason Cath still needed: urinary retention Assessment/Plan Chief Complaint/Hosp Course ASSESSMENT AND PLAN: 1. 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 Grant. The patient currently has NG tube to suctioning, epidural pain management by anesthesia. Continue IV fluids, start incentive spirometer 1 hour while patient is awake. 2. Diabetes mellitus type 2. We will continue mild algorithm sliding scale with Accu-Cheks q.6 hours. 3. Hypertension. Continue to monitor blood pressure. Catapres patch and hydralazine p.r.n. for systolic blood pressure above 170. 4. Hypothyroidism. Continue the patient's Synthroid. 5. Hyperlipidemia by history. 6. Hypomagnesemia, will replace magnesium. Sequential compression devices for deep venous thrombosis prophylaxis. Further recommendations based on clinical course. Plan of care discussed with Dr. Baker. Problems: Subjective 24 Hr Interval Summary Free Text/Dictation Patient was elevated blood pressure denied any pain per nursing, currently is stable after hydralazine, patient continues to have hyperactive bowel sounds and negative flatus. Exam/Review of Systems Vital Signs Vitals Vital Signs Date Time Temp Pulse Resp B/P Pulse Ox O2 Delivery O2 Flow Rate FiO2 07/08/16 12:42 98.5 108 20 130/62 97 Nasal Cannula 2.0 Intake and Output 07/07/16 07/07/16 07/08/16 15:00 23:00 07:00 Intake Total 12 ml 1628 ml Output Total 0 ml 1005 ml 1800 ml Balance 0 ml -993 ml -172 ml Exam GENERAL: A well-developed, obese female, awake alert. HEENT: Head is atraumatic, normocephalic. NECK: Supple, no cervical lymphadenopathy, no thyromegaly. CHEST: Clear bilaterally. There are no rhonchi, wheezes, rales noted. CARDIOVASCULAR: Normal S1, S2. No murmurs, gallops, clicks, rubs noted. ABDOMEN: Status post surgery with a midline incision intact with dressing. Bowel, bowel sounds hypoactive. EXTREMITIES: There is no edema, clubbing, cyanosis. Pulses equal bilaterally 2 +. SKIN: There is rash, petechiae noted. NEUROLOGIC: Patient is awake, alert and oriented x4 Results Result Diagram: 07/08/16 0901 07/08/16 0901 Results 24 hrs Laboratory Tests Test 07/07/16 17:16 07/07/16 20:03 07/08/16 07:43 07/08/16 09:01 Bedside Glucose 123 120 185 Activated Partial Thromboplast Time 30.9 Anion Gap 17 H Basophils # 0.0 Basophils % 0.3 Blood Morphology Comment Blood Urea Nitrogen 7 Calcium Level 9.1 Carbon Dioxide Level 24 Chloride Level 103 Creatinine 0.96 Eosinophils # 0.2 Eosinophils % 1.6 Glucose Level 176 Hematocrit 32.0 L Hemoglobin 10.4 L INR International Normalized Ratio 1.13 Lymphocytes # 1.3 Lymphocytes % 11.7 L Magnesium Level 1.6 L Mean Corpuscular Hemoglobin 28.6 L Mean Corpuscular Hemoglobin Concent 32.7 Mean Corpuscular Volume 87.5 Mean Platelet Volume 8.9 Monocytes # 0.7 Monocytes % 6.9 Neutrophils # 8.7 H Neutrophils % 79.5 H Nucleated Red Blood Cells # 0.0 Nucleated Red Blood Cells % 0.0 Phosphorus Level 3.2 Platelet Count 308 Potassium Level 4.4 Prothrombin Time 14.5 H Prothrombin Time Ratio 1.1 Red Blood Count 3.65 L Red Cell Distribution Width 14.4 Sodium Level 140 White Blood Count 10.9 H Test 07/08/16 12:30 Bedside Glucose 173 Medications Medications Current Medications Hydromorphone HCl (Dilaudid) 0.2 mg Q2H PRN IV PAIN LEVEL 1-5; Start 07/06/16 at 12:00 Hydromorphone HCl (Dilaudid) 0.4 mg Q2H PRN IV PAIN LEVEL 6-10; Start 07/06/16 at 12:00 Morphine Sulfate (morphine) 2 mg Q2H PRN IV PAIN LEVEL 1-5; Start 07/06/16 at 12:00 Morphine Sulfate (morphine) 4 mg Q2H PRN IV PAIN LEVEL 6-10; Start 07/06/16 at 12:00 Diphenhydramine HCl (Benadryl) 25 mg Q4H PRN IV PRURITUS; Start 07/06/16 at 12: 00 Nalbuphine HCl (Nubain) 10 mg Q4H PRN IV PRURITUS; Start 07/06/16 at 12:00 Ondansetron HCl (Zofran Inj) 4 mg Q6H PRN IV NAUSEA AND/OR VOMITING; Start at 12:00 Naloxone HCl (Narcan) 0.2 mg Q2M PRN IV FOR RESP RATE 8 OR LESS; Start at 12:00 Ondansetron HCl (Zofran Inj) 4 mg Q6H PRN IV NAUSEA AND/OR VOMITING; Start at 12:00 Morphine Sulfate 2 MG/HR CONTINUOUS RATE 2... Q4PCA IV ; Start 07/06/16 at 12: 00 Potassium Chloride/Dextrose/ Sod Cl 1,000 ml @ 125 mls/hr Q8H IV Last administered on 07/08/16 12:40; Admin Dose 125 MLS/HR; Start 07/06/16 at 11:54 Acetaminophen (Ofirmev 1000mg/ 100ml Iv) 100 ml @ 400 mls/hr Q6H PRN IVPB PAIN Last administered on 07/08/16 05:05; Admin Dose 400 MLS/HR; Start 07/06/16 at 12:00 Diagnostic Test (Pha) (Accucheck) 1 ea 02 XX ; Start 07/07/16 at 02:00 Levothyroxine Sodium (Synthroid Iv) 25 mcg DAILY@06 IV Last administered on 07/08 04:50; Admin Dose 25 MCG; Start 07/07/16 at 06:00 Naloxone HCl (Narcan) 0.2 mg Q2M PRN IV FOR RESP RATE 8 OR LESS; Start at 23:30 Hydralazine HCl 10 mg 10 mg Q4H PRN IV SBP>170 Last administered on 07/08/16 10 :20; Admin Dose 10 MG; Start 07/08/16 at 10:06 Magnesium Sulfate (Magnesium Sulfate 2 Gm/50 ml) 50 ml @ 25 mls/hr ONCE ONCE IVPB Last administered on 07/08/16 12:38; Admin Dose 25 MLS/HR; Start 07/08/16 at 12:00; Stop 07/08/16 at 13:59 Clonidine HCl (Catapres-Tts 1 Patch) 1 patch Q7D TRANSDERM Last administered on 07/08/16 12:38; Admin Dose 1 PATCH; Start 07/08/16 at 12:00 ADAM HOOVER Jul 08, 2016 13:16
[2016-07-08] MEDS: PIPER-TAZO 3.375 GM IV (PMX) 100 ML IVPB SCH ×2 (14:22→21:44)
[2016-07-08] MEDS ORDERED: DEXTROSE 50% 50 ML SYRINGE IV PRN ×2 (15:00)
[2016-07-08] MEDS ORDERED: GLUCOSE GEL 15 GRAM TUBE PO PRN ×2 (15:00)
[2016-07-08] MEDS ORDERED: GLUCOSE GEL 15 GRAM TUBE BUCCAL PRN (15:00)
[2016-07-08] MEDS ORDERED: GLUCAGON 1 MG INJ IM PRN (15:00)
[2016-07-08] MEDS: CEPASTAT LOZENGE MT PRN (16:36)
--- NOTE | 2016-07-08 16:52 | PN ---
DATE: 07/08/2016 SUBJECTIVE: Feels that she has got a common cold. No other complaint, no bowel movement, no passing gas. No vomiting. OBJECTIVE: VITAL SIGNS: Stable except that today has had 1 episode of temperature 100.2. Temperature 98.5, heart rate 108, respiratory rate 20, blood pressure 130/62, pulse oximetry 97% on 2 liters nasal cannula. LABORATORY DATA: WBC 10,900, hemoglobin 10.4, hematocrit 32, neutrophils 97, __ ___9%. Chemistry: Potassium is 4.4. ABDOMEN: Soft. NG tube is connected to intermittent suction, but the machine is not working properly even though there is some drainage & slightly old blood is in that probably from intubation. I gave the patient some water to drink and suctioned out. It is clear. There is no fresh bleeding. ASSESSMENT: 1. Status post left colon resection for cancer. 2. The patient appears to be stable except 1 episode of high fever. 3. Abdomen is soft. Mild tenderness on pressure. 4. Incentive spirometry 1200 mL. 5. Legs no calf tenderness. No pitting edema. Sequential compression devices were on the legs. 6. The patient is stable postop day #2 for a left colon resection for cancer. Patient has an epidural and has not been out of bed yet but is pain free. He appears slightly dehydrated and has complained of sore throat. . PLAN: 1. Continue current care per medical point of view. The medical service has started the patient on antibiotics for his fever. 2. I told the nurse to change the intermittent suction machine because it looks defective and working as a continuous suction . Dictated By: CAROLYNE PRADHAN/JOSE Conf#: [id number] DID#: [id number] MTDD
[2016-07-09] MEDS: ACCUCHECK XX SCH (01:28)
[2016-07-09] MEDS: PIPER-TAZO 3.375 GM IV (PMX) 100 ML IVPB SCH ×3 (05:23→21:16)
[2016-07-09] MEDS: LEVOTHYROXINE 100 MCG VIAL IV SCH (05:23)
[2016-07-09] MEDS: D5W-0.45 NACL + KCL 20 MEQ 1,000 ML IV SCH ×2 (05:23→16:33)
[2016-07-09] MEDS: hydrALAzine 20 MG INJ IV PRN ×2 (05:33→12:11)
[2016-07-09 05:35] VITALS: BP 190/85; PULSE 95; RESP 18
[2016-07-09 06:05] VITALS: BP 125/65; PULSE 98; RESP 18
[2016-07-09] MEDS: CEPASTAT LOZENGE MT PRN (08:07)
[2016-07-09] MEDS: INSULIN ASPART [NOVOLOG] 3 ML PEN SC SCH ×4 (08:15→21:00)
[2016-07-09 08:30] VITALS: BP 144/69; PULSE 99; RESP 20
[2016-07-09 09:48] LABS: POTASSIUM 4.4 mmol/L (3.5-5.1)
[2016-07-09 09:49] LABS: BASOPHILS % 0.3 % (0.0-2.0); EOSINOPHILS # 0.3 10^3/ul (0.0-0.5); EOSINOPHILS % 2.5 % (0.0-7.0); HEMATOCRIT 30.6 % (37.0-47.0); HEMOGLOBIN 10.4 g/dl (12.0-16.0); LYMPHOCYTES # 0.9 10^3/ul (0.8-2.9); LYMPHOCYTES % 8.3 % (15.0-51.0); MEAN CORPUSCULAR HEMOGLOBIN 29.2 pg (29.0-33.0); MEAN CORPUSCULAR HGB CONC 33.8 g/dl (32.0-37.0); MEAN CORPUSCULAR VOLUME 86.4 fl (82.0-101.0); MEAN PLATELET VOLUME 8.1 fl (7.4-10.4); MONOCYTE # 0.8 10^3/ul (0.3-0.9); MONOCYTES % 7.2 % (0.0-11.0); NEUTROPHIL # 9.1 10^3/ul (1.6-7.5); NEUTROPHILS % 81.7 % (39.0-77.0); PLATELET COUNT 333 10^3/UL (140-440); RED BLOOD COUNT 3.55 10^6/ul (4.20-5.40); RED CELL DISTRIBUTION WIDTH 14.5 % (11.5-14.5); UNCORRECTED WBC 11.2 10^3/ul (4.8-10.8); WHITE BLOOD COUNT 11.2 10^3/ul (4.8-10.8)
[2016-07-09 09:50] LABS: CREATININE 1.01 mg/dl (0.44-1.00)
[2016-07-09 09:51] LABS: CALCIUM 9.1 mg/dl (8.4-10.2); INR 1.21; MAGNESIUM 1.8 mg/dl (1.7-2.5); PARTIAL THROMBOPLASTIN TIME 31.4 Sec (25.0-35.0); PHOSPHORUS 3.9 mg/dl (2.5-4.9); PROTIME 15.4 Sec (12.2-14.2); PT RATIO 1.2
[2016-07-09 09:58] LABS: CONDITION 1
--- NOTE | 2016-07-09 11:23 | PN ---
Date/Time of Note Date/Time of Note DATE: 07/09/16 TIME: 11:21 Assessment/Plan VTE Prophylaxis VTE Prophylaxis Intervention: SCD's, other Lines/Catheters IV Catheter Type (from Nrsg): Peripheral IV Urinary Cath still in place: Yes Reason Cath still needed: urinary retention Assessment/Plan Assessment/Plan 1. 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 Grant. The patient currently has NG tube to suctioning, epidural pain management by anesthesia. Continue IV fluids, start incentive spirometer 1 hour while patient is awake. 2. Diabetes mellitus type 2. We will continue mild algorithm sliding scale with Accu-Cheks q.6 hours. 3. Hypertension. Continue to monitor blood pressure. Catapres patch and hydralazine p.r.n. for systolic blood pressure above 170. 4. Hypothyroidism. Continue the patient's Synthroid. 5. Hyperlipidemia by history. 6. Hypomagnesemia, will replace magnesium. Sequential compression devices for deep venous thrombosis prophylaxis. Further recommendations based on clinical course. Plan of care discussed with Dr. Baker. Subjective 24 Hr Interval Summary Constitutional: requiring IVF, requiring O2 Eyes: no complaints ENT: no complaints Gastrointestinal: pain Genitourinary: no complaints Musculoskeletal: no complaints Skin: no complaints Neurologic: no complaints Exam/Review of Systems Vital Signs Vitals Vital Signs Date Time Temp Pulse Resp B/P Pulse Ox O2 Delivery O2 Flow Rate FiO2 07/09/16 08:30 97.6 99 20 144/69 95 Nasal Cannula 2.0 Intake and Output 07/08/16 07/08/16 07/09/16 15:00 23:00 07:00 Intake Total 1150 ml 1450 ml Output Total 1750 ml 800 ml Balance -600 ml 650 ml Exam Constitutional: alert, oriented, well developed Psych: nl mood/affect Head: atraumatic Eyes: EOMI, nl sclera ENMT: nl external ears & nose Neck: non-tender Respiratory: clear to auscultation Cardiovascular: nl pulses Gastrointestinal: non-tender, other ( status post left colon resection - abdominal dressing dressing dry and intact. No new spots of bloody discharge noted), soft Musculoskeletal: nl extremities to inspection Extremities: normal pulses Neurological: nl mental status, nl speech Skin: nl turgor Lymph: nontender Results Result Diagram: 07/09/16 0925 07/09/16 0925 Results 24 hrs Laboratory Tests Test 07/08/16 12:30 07/08/16 17:47 07/08/16 20:27 07/09/16 07:52 Bedside Glucose 173 140 172 151 Test 07/09/16 09:25 Activated Partial Thromboplast Time 31.4 Anion Gap 16 Basophils # 0.0 Basophils % 0.3 Blood Urea Nitrogen 9 Calcium Level 9.1 Carbon Dioxide Level 25 Chloride Level 102 Creatinine 1.01 H Eosinophils # 0.3 Eosinophils % 2.5 Glucose Level 192 Hematocrit 30.6 L Hemoglobin 10.4 L INR International Normalized Ratio 1.21 Lymphocytes # 0.9 Lymphocytes % 8.3 L Magnesium Level 1.8 Mean Corpuscular Hemoglobin 29.2 Mean Corpuscular Hemoglobin Concent 33.8 Mean Corpuscular Volume 86.4 Mean Platelet Volume 8.1 Monocytes # 0.8 Monocytes % 7.2 Neutrophils # 9.1 H Neutrophils % 81.7 H Nucleated Red Blood Cells # 0.0 Nucleated Red Blood Cells % 0.0 Phosphorus Level 3.9 Platelet Count 333 Potassium Level 4.4 Prothrombin Time 15.4 H Prothrombin Time Ratio 1.2 Red Blood Count 3.55 L Red Cell Distribution Width 14.5 Sodium Level 139 White Blood Count 11.2 H Medications Medications Current Medications Hydromorphone HCl (Dilaudid) 0.2 mg Q2H PRN IV PAIN LEVEL 1-5; Start 07/06/16 at 12:00 Hydromorphone HCl (Dilaudid) 0.4 mg Q2H PRN IV PAIN LEVEL 6-10; Start 07/06/16 at 12:00 Morphine Sulfate (morphine) 2 mg Q2H PRN IV PAIN LEVEL 1-5; Start 07/06/16 at 12:00 Morphine Sulfate (morphine) 4 mg Q2H PRN IV PAIN LEVEL 6-10; Start 07/06/16 at 12:00 Diphenhydramine HCl (Benadryl) 25 mg Q4H PRN IV PRURITUS; Start 07/06/16 at 12: 00 Nalbuphine HCl (Nubain) 10 mg Q4H PRN IV PRURITUS; Start 07/06/16 at 12:00 Ondansetron HCl (Zofran Inj) 4 mg Q6H PRN IV NAUSEA AND/OR VOMITING; Start at 12:00 Morphine Sulfate 2 MG/HR CONTINUOUS RATE 2... Q4PCA IV ; Start 07/06/16 at 12: 00 Potassium Chloride/Dextrose/ Sod Cl 1,000 ml @ 125 mls/hr Q8H IV Last administered on 07/09/16 05:23; Admin Dose 125 MLS/HR; Start 07/06/16 at 11:54 Acetaminophen (Ofirmev 1000mg/ 100ml Iv) 100 ml @ 400 mls/hr Q6H PRN IVPB PAIN Last administered on 07/08/16 05:05; Admin Dose 400 MLS/HR; Start 07/06/16 at 12:00 Diagnostic Test (Pha) (Accucheck) 1 ea 02 XX ; Start 07/07/16 at 02:00 Levothyroxine Sodium (Synthroid Iv) 25 mcg DAILY@06 IV Last administered on 07/09 05:23; Admin Dose 25 MCG; Start 07/07/16 at 06:00 Naloxone HCl (Narcan) 0.2 mg Q2M PRN IV FOR RESP RATE 8 OR LESS; Start at 23:30 Hydralazine HCl (Apresoline) 10 mg Q4H PRN IV SBP>170 Last administered on 05:33; Admin Dose 10 MG; Start 07/08/16 at 10:06 Clonidine HCl 1 patch 1 patch Q7D TRANSDERM Last administered on 07/08/16 12:38 ; Admin Dose 1 PATCH; Start 07/08/16 at 12:00 Piperacillin Sod/ Tazobactam Sod (Zosyn 3.375gm/ 100 ml (Pmx)) 100 ml @ 200 mls /hr Q8 IVPB Last administered on 07/09/16 05:23; Admin Dose 200 MLS/HR; Start 07/08/16 at 14:00 Miscellaneous Information 1 ea NOTE XX ; Start 07/08/16 at 15:00 Glucose (Glutose) 15 gm Q15M PRN PO DECREASED GLUCOSE; Start 07/08/16 at 15:00 Glucose (Glutose) 22.5 gm Q15M PRN PO DECREASED GLUCOSE; Start 07/08/16 at 15:00 Dextrose (D50w Syringe) 25 ml Q15M PRN IV DECREASED GLUCOSE; Start 07/08/16 at 15:00 Dextrose (D50w Syringe) 50 ml Q15M PRN IV DECREASED GLUCOSE; Start 07/08/16 at 15:00 Glucagon (Glucagen) 1 mg Q15M PRN IM DECREASED GLUCOSE; Start 07/08/16 at 15:00 Glucose (Glutose) 15 gm Q15M PRN BUCCAL DECREASED GLUCOSE; Start 07/08/16 at 15: 00 Phenol (Cepastat Lozenge) 1 lozenge Q4 PRN MT SORE THROAT Last administered on 07/09/16 08:07; Admin Dose 1 LOZENGE; Start 07/08/16 at 16:30 DAVID PARSON Jul 09, 2016 11:23
[2016-07-09 11:47] VITALS: BP 166/79; PULSE 96; RESP 20
[2016-07-09 13:50] VITALS: BP 149/72; RESP 18
[2016-07-09] MEDS: FENTAnyl 2MCG/ML-ROPIV 0.2% 100 ML BAG EPI SCH (14:40)
--- NOTE | 2016-07-09 14:51 | CONS ---
Date/Time of Note Date/Time of Note DATE: 07/09/16 TIME: 14:49 Consultation Date/Type/Reason Admit Date/Time Jul 06, 2016 at 06:48 Initial Consult Date 07/06/16 Type of Consultation: Anesthesia Reason for Consultation Left Hemicolectomy 24 HR Interval Summary Free Text/Dictation HISTORY OF PRESENT ILLNESS: The patient is a 65-year-old female with past medical history positive for hypertension, diabetes mellitus, hypothyroidism and hyperlipidemia. The patient underwent a routine colonoscopy and was noted a large mass in March 2016 which appeared to a well-differentiated adenocarcinoma. The patient was evaluated by Dr. 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 Postoperatively, the patient has experienced some pain and will be admitted for further evaluation and management to medical/surgical floor. PAST MEDICAL HISTORY: Positive for hypertension, hyperlipidemia, diabetes mellitus, hypothyroidism. PAST SURGICAL HISTORY: The patient denies having any surgeries in the past. FAMILY HISTORY: The patient's mother of a stroke. SOCIAL HISTORY: The patient lives at home with family. The patient is a former smoker; however, quit many years ago. The patient denies any illicit drug use. Denies any alcohol use. ALLERGIES: NO KNOWN ALLERGIES. MEDICATIONS ON ADMISSION: 1. Amlodipine. 2. Clonidine. 3. Glipizide. 4. Levothyroxine. 5. Metformin. 6. Nifedipine. 7. Lovastatin. She is doing well sleeping comfortably in her bed, POD#3 Thoracic Epidural catheter in place, catheter is clean and dressing is intact, Infusion rate is 5cc/h, pain is well controlled, no sensory or motor deficit, no apnea noted, no itching or nausea or vomiting reported. vital signs are stable and she is afebrile. Bowel sounds present, has not passed gas yet. Epidural Duramorph was given for post-op pain control. patient will be followed up. will continue the epidural infusion withe the same rate of 5cc/h. Exam/Review of Systems Vital Signs Vitals Vital Signs Date Time Temp Pulse Resp B/P Pulse Ox O2 Delivery O2 Flow Rate FiO2 07/09/16 13:50 18 149/72 96 Nasal Cannula 2.0 07/09/16 11:47 99.1 96 Intake and Output 07/08/16 07/08/16 07/09/16 15:00 23:00 07:00 Intake Total 1150 ml 1450 ml Output Total 1750 ml 800 ml Balance -600 ml 650 ml Results Result Diagram: 07/09/16 0925 07/09/16 0925 Results 24 hrs Laboratory Tests Test 07/08/16 17:47 07/08/16 20:27 07/09/16 07:52 07/09/16 09:25 Bedside Glucose 140 172 151 Activated Partial Thromboplast Time 31.4 Anion Gap 16 Basophils # 0.0 Basophils % 0.3 Blood Urea Nitrogen 9 Calcium Level 9.1 Carbon Dioxide Level 25 Chloride Level 102 Creatinine 1.01 H Eosinophils # 0.3 Eosinophils % 2.5 Glucose Level 192 Hematocrit 30.6 L Hemoglobin 10.4 L INR International Normalized Ratio 1.21 Lymphocytes # 0.9 Lymphocytes % 8.3 L Magnesium Level 1.8 Mean Corpuscular Hemoglobin 29.2 Mean Corpuscular Hemoglobin Concent 33.8 Mean Corpuscular Volume 86.4 Mean Platelet Volume 8.1 Monocytes # 0.8 Monocytes % 7.2 Neutrophils # 9.1 H Neutrophils % 81.7 H Nucleated Red Blood Cells # 0.0 Nucleated Red Blood Cells % 0.0 Phosphorus Level 3.9 Platelet Count 333 Potassium Level 4.4 Prothrombin Time 15.4 H Prothrombin Time Ratio 1.2 Red Blood Count 3.55 L Red Cell Distribution Width 14.5 Sodium Level 139 White Blood Count 11.2 H Test 07/09/16 11:50 Bedside Glucose 200 Medications Medications Current Medications Hydromorphone HCl (Dilaudid) 0.2 mg Q2H PRN IV PAIN LEVEL 1-5; Start 07/06/16 at 12:00 Hydromorphone HCl (Dilaudid) 0.4 mg Q2H PRN IV PAIN LEVEL 6-10; Start 07/06/16 at 12:00 Morphine Sulfate (morphine) 2 mg Q2H PRN IV PAIN LEVEL 1-5; Start 07/06/16 at 12:00 Morphine Sulfate (morphine) 4 mg Q2H PRN IV PAIN LEVEL 6-10; Start 07/06/16 at 12:00 Diphenhydramine HCl (Benadryl) 25 mg Q4H PRN IV PRURITUS; Start 07/06/16 at 12: 00 Nalbuphine HCl (Nubain) 10 mg Q4H PRN IV PRURITUS; Start 07/06/16 at 12:00 Ondansetron HCl (Zofran Inj) 4 mg Q6H PRN IV NAUSEA AND/OR VOMITING; Start at 12:00 Morphine Sulfate 2 MG/HR CONTINUOUS RATE 2... Q4PCA IV ; Start 07/06/16 at 12: 00 Potassium Chloride/Dextrose/ Sod Cl 1,000 ml @ 125 mls/hr Q8H IV Last administered on 07/09/16 05:23; Admin Dose 125 MLS/HR; Start 07/06/16 at 11:54 Acetaminophen (Ofirmev 1000mg/ 100ml Iv) 100 ml @ 400 mls/hr Q6H PRN IVPB PAIN Last administered on 07/08/16 05:05; Admin Dose 400 MLS/HR; Start 07/06/16 at 12:00 Diagnostic Test (Pha) (Accucheck) 1 ea 02 XX ; Start 07/07/16 at 02:00 Levothyroxine Sodium (Synthroid Iv) 25 mcg DAILY@06 IV Last administered on 07/09 05:23; Admin Dose 25 MCG; Start 07/07/16 at 06:00 Naloxone HCl (Narcan) 0.2 mg Q2M PRN IV FOR RESP RATE 8 OR LESS; Start at 23:30 Hydralazine HCl (Apresoline) 10 mg Q4H PRN IV SBP>160 Last administered on 12:11; Admin Dose 10 MG; Start 07/08/16 at 10:06 Clonidine HCl 1 patch 1 patch Q7D TRANSDERM Last administered on 07/08/16 12:38 ; Admin Dose 1 PATCH; Start 07/08/16 at 12:00 Piperacillin Sod/ Tazobactam Sod (Zosyn 3.375gm/ 100 ml (Pmx)) 100 ml @ 200 mls /hr Q8 IVPB Last administered on 07/09/16 13:47; Admin Dose 200 MLS/HR; Start 07/08/16 at 14:00 Miscellaneous Information 1 ea NOTE XX ; Start 07/08/16 at 15:00 Glucose (Glutose) 15 gm Q15M PRN PO DECREASED GLUCOSE; Start 07/08/16 at 15:00 Glucose (Glutose) 22.5 gm Q15M PRN PO DECREASED GLUCOSE; Start 07/08/16 at 15:00 Dextrose (D50w Syringe) 25 ml Q15M PRN IV DECREASED GLUCOSE; Start 07/08/16 at 15:00 Dextrose (D50w Syringe) 50 ml Q15M PRN IV DECREASED GLUCOSE; Start 07/08/16 at 15:00 Glucagon (Glucagen) 1 mg Q15M PRN IM DECREASED GLUCOSE; Start 07/08/16 at 15:00 Glucose (Glutose) 15 gm Q15M PRN BUCCAL DECREASED GLUCOSE; Start 07/08/16 at 15: 00 Phenol (Cepastat Lozenge) 1 lozenge Q4 PRN MT SORE THROAT Last administered on 07/09/16t 08:07; Admin Dose 1 LOZENGE; Start 07/08/16 at 16:30 ROYCE BLACKMON MD Jul 09, 2016 14:51
--- NOTE | 2016-07-09 15:39 | PN ---
DATE: 07/09/2016 SUBJECTIVE: This is postop day #3. No new events. No nausea, no vomiting. Patient has NG tube an d no passing gas, no bowel movement. Has been out of bed in chair for a couple of hours. Epidural running. OBJECTIVE: Vital signs stable. 99.1, 96 heart rate, 20 respirations, 166/79 blood pressure 98% on 2 liter nasal cannula, saturation. LABORATORY DATA: WBC today is 11,200. His WBC, 81% segmented, hemoglobin 10.4 and hematocrit 30.6 and stable. BUN is 9, creatinine 1.01, potassium is 4.4. ABDOMEN: Soft, some tenderness on deep pressure of legs. EXTREMITIES: No calf tenderness. Homans' sign is negative. Sequential compression devices around it. NG tube connected to intermittent suction draining gastric juice. Bowel sounds 2+/4+. ASSESSMENT: Status post left hemicolectomy 4 days ago. The patient is stable and doing fine. Expe cting passage of gas pretty soon. PLAN: 1. Continue current care. 2. Encourage incentive spirometry #3 tomorrow. We will plan to remove the epidural and the patient will be able to walk around and hopefully on Wednesday discontinue the [place]. Dictated By: CAROLYNE HERNANDEZ MD PS/NTS Conf#: [id number] DID#: [id number]
[2016-07-09 19:34] VITALS: BP 154/73; RESP 22
[2016-07-10] MEDS: ACCUCHECK XX SCH (02:00)
[2016-07-10] MEDS: D5W-0.45 NACL + KCL 20 MEQ 1,000 ML IV SCH ×4 (03:54→20:05)
[2016-07-10] MEDS: PIPER-TAZO 3.375 GM IV (PMX) 100 ML IVPB SCH ×3 (05:50→22:31)
[2016-07-10] MEDS: LEVOTHYROXINE 100 MCG VIAL IV SCH (05:51)
[2016-07-10 06:10] LABS: BASOPHILS % 0.5 % (0.0-2.0); EOSINOPHILS # 0.4 10^3/ul (0.0-0.5); EOSINOPHILS % 4.3 % (0.0-7.0); HEMATOCRIT 29.8 % (37.0-47.0); LYMPHOCYTES # 1.3 10^3/ul (0.8-2.9); LYMPHOCYTES % 13.3 % (15.0-51.0); MEAN CORPUSCULAR HEMOGLOBIN 28.9 pg (29.0-33.0); MEAN CORPUSCULAR HGB CONC 33.5 g/dl (32.0-37.0); MEAN CORPUSCULAR VOLUME 86.4 fl (82.0-101.0); MEAN PLATELET VOLUME 8.4 fl (7.4-10.4); MONOCYTE # 0.8 10^3/ul (0.3-0.9); MONOCYTES % 8.1 % (0.0-11.0); NEUTROPHIL # 7.3 10^3/ul (1.6-7.5); NEUTROPHILS % 73.8 % (39.0-77.0); PLATELET COUNT 337 10^3/UL (140-440); RED BLOOD COUNT 3.44 10^6/ul (4.20-5.40); RED CELL DISTRIBUTION WIDTH 14.4 % (11.5-14.5); UNCORRECTED WBC 9.9 10^3/ul (4.8-10.8); WHITE BLOOD COUNT 9.9 10^3/ul (4.8-10.8)
[2016-07-10 06:20] LABS: POTASSIUM 4.3 mmol/L (3.5-5.1)
[2016-07-10 06:23] LABS: CREATININE 1.05 mg/dl (0.44-1.00)
[2016-07-10 06:24] LABS: CALCIUM 9.1 mg/dl (8.4-10.2)
[2016-07-10 06:47] LABS: CONDITION 1
[2016-07-10 07:51] VITALS: BP 173/81; RESP 20
[2016-07-10] MEDS: INSULIN ASPART [NOVOLOG] 3 ML PEN SC SCH ×4 (08:05→20:05)
[2016-07-10] MEDS: hydrALAzine 20 MG INJ IV PRN (08:48)
[2016-07-10 11:05] VITALS: BP 125/67; PULSE 106; RESP 20
[2016-07-10 12:20] VITALS: BP 145/79; PULSE 99; RESP 16
--- NOTE | 2016-07-10 12:58 | PN ---
Date/Time of Note Date/Time of Note DATE: 07/10/16 TIME: 12:56 Assessment/Plan VTE Prophylaxis VTE Prophylaxis Intervention: SCD's Lines/Catheters IV Catheter Type (from Nrsg): Peripheral IV Central line still needed: Yes Urinary Cath still in place: Yes Reason Cath still needed: urinary retention Assessment/Plan Chief Complaint/Hosp Course ASSESSMENT AND PLAN: 1. 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 Grant. The patient currently has NG tube to suctioning, epidural pain management by anesthesia. Continue IV fluids, start incentive spirometer 1 hour while patient is awake. 2. Diabetes mellitus type 2. We will continue mild algorithm sliding scale with Accu-Cheks q.6 hours. 3. Hypertension. Continue to monitor blood pressure. Catapres patch and hydralazine p.r.n. for systolic blood pressure above 170. 4. Hypothyroidism. Continue the patient's Synthroid. 5. Hyperlipidemia by history. Patient's condition and plan of care discussed with Dr. Purvis Sequential compression devices for deep venous thrombosis prophylaxis. Further recommendations based on clinical course. Plan of care discussed with Dr. Baker. Problems: Subjective 24 Hr Interval Summary Free Text/Dictation Patient is awake alert, pain is well controlled with epidural analgesia, bowel sounds present, negative flatus. Exam/Review of Systems Vital Signs Vitals Vital Signs Date Time Temp Pulse Resp B/P Pulse Ox O2 Delivery O2 Flow Rate FiO2 07/10/16 11:05 106 20 125/67 07/10/16 07:51 98.6 96 07/09/16 20:05 2.0 07/09/16 13:50 Nasal Cannula Intake and Output 07/09/16 07/09/16 07/10/16 15:00 23:00 07:00 Intake Total 100 ml 1100 ml 1500 ml Output Total 50 ml 1200 ml 850 ml Balance 50 ml -100 ml 650 ml Exam GENERAL: A well-developed, obese female, awake alert. HEENT: Head is atraumatic, normocephalic. NECK: Supple, no cervical lymphadenopathy, no thyromegaly. CHEST: Clear bilaterally. There are no rhonchi, wheezes, rales noted. CARDIOVASCULAR: Normal S1, S2. No murmurs, gallops, clicks, rubs noted. ABDOMEN: Status post surgery with a midline incision intact with dressing. Bowel, bowel sounds hypoactive. EXTREMITIES: There is no edema, clubbing, cyanosis. Pulses equal bilaterally 2 +. SKIN: There is rash, petechiae noted. NEUROLOGIC: Patient is awake, alert and oriented x4 Results Result Diagram: 07/10/16 0445 07/10/16 0445 Results 24 hrs Laboratory Tests Test 07/09/16 16:35 07/09/16 20:23 07/10/16 04:45 07/10/16 07:53 Bedside Glucose 174 177 174 Anion Gap 16 Basophils # 0.0 Basophils % 0.5 Blood Morphology Comment Blood Urea Nitrogen 9 Calcium Level 9.1 Carbon Dioxide Level 27 Chloride Level 101 Creatinine 1.05 H Eosinophils # 0.4 Eosinophils % 4.3 Glucose Level 151 Hematocrit 29.8 L Hemoglobin 10.0 L Lymphocytes # 1.3 Lymphocytes % 13.3 L Mean Corpuscular Hemoglobin 28.9 L Mean Corpuscular Hemoglobin Concent 33.5 Mean Corpuscular Volume 86.4 Mean Platelet Volume 8.4 Monocytes # 0.8 Monocytes % 8.1 Neutrophils # 7.3 Neutrophils % 73.8 Nucleated Red Blood Cells # 0.0 Nucleated Red Blood Cells % 0.0 Platelet Count 337 Potassium Level 4.3 Red Blood Count 3.44 L Red Cell Distribution Width 14.4 Sodium Level 140 White Blood Count 9.9 Test 07/10/16 11:44 07/10/16 12:23 Bedside Glucose 184 222 H Medications Medications Current Medications Hydromorphone HCl (Dilaudid) 0.2 mg Q2H PRN IV PAIN LEVEL 1-5; Start 07/06/16 at 12:00 Hydromorphone HCl (Dilaudid) 0.4 mg Q2H PRN IV PAIN LEVEL 6-10; Start 07/06/16 at 12:00 Morphine Sulfate (morphine) 2 mg Q2H PRN IV PAIN LEVEL 1-5; Start 07/06/16 at 12:00 Morphine Sulfate (morphine) 4 mg Q2H PRN IV PAIN LEVEL 6-10; Start 07/06/16 at 12:00 Diphenhydramine HCl (Benadryl) 25 mg Q4H PRN IV PRURITUS; Start 07/06/16 at 12: 00 Nalbuphine HCl (Nubain) 10 mg Q4H PRN IV PRURITUS; Start 07/06/16 at 12:00 Ondansetron HCl (Zofran Inj) 4 mg Q6H PRN IV NAUSEA AND/OR VOMITING; Start at 12:00 Morphine Sulfate 1 MG/HR CONTINUOUS RATE 2... Q4PCA IV Last administered on 11:58; Admin Dose 30 MG; Start 07/06/16 at 12:00 Potassium Chloride/Dextrose/ Sod Cl 1,000 ml @ 125 mls/hr Q8H IV Last administered on 07/10/16 04:37; Admin Dose 125 MLS/HR; Start 07/06/16 at 11:54 Acetaminophen (Ofirmev 1000mg/ 100ml Iv) 100 ml @ 400 mls/hr Q6H PRN IVPB PAIN Last administered on 07/08/16 05:05; Admin Dose 400 MLS/HR; Start 07/06/16 at 12:00 Diagnostic Test (Pha) (Accucheck) 1 ea 02 XX ; Start 07/07/16 at 02:00 Levothyroxine Sodium (Synthroid Iv) 25 mcg DAILY@06 IV Last administered on 07/10 05:51; Admin Dose 25 MCG; Start 07/07/16 at 06:00 Naloxone HCl (Narcan) 0.2 mg Q2M PRN IV FOR RESP RATE 8 OR LESS; Start at 23:30 Hydralazine HCl (Apresoline) 10 mg Q4H PRN IV SBP>160 Last administered on 08:48; Admin Dose 10 MG; Start 07/08/16 at 10:06 Clonidine HCl 1 patch 1 patch Q7D TRANSDERM Last administered on 07/08/16 12:38 ; Admin Dose 1 PATCH; Start 07/08/16 at 12:00 Piperacillin Sod/ Tazobactam Sod (Zosyn 3.375gm/ 100 ml (Pmx)) 100 ml @ 200 mls /hr Q8 IVPB Last administered on 07/10/16 05:50; Admin Dose 200 MLS/HR; Start 07/08/16 at 14:00 Miscellaneous Information 1 ea NOTE XX ; Start 07/08/16 at 15:00 Glucose (Glutose) 15 gm Q15M PRN PO DECREASED GLUCOSE; Start 07/08/16 at 15:00 Glucose (Glutose) 22.5 gm Q15M PRN PO DECREASED GLUCOSE; Start 07/08/16 at 15:00 Dextrose (D50w Syringe) 25 ml Q15M PRN IV DECREASED GLUCOSE; Start 07/08/16 at 15:00 Dextrose (D50w Syringe) 50 ml Q15M PRN IV DECREASED GLUCOSE; Start 07/08/16 at 15:00 Glucagon (Glucagen) 1 mg Q15M PRN IM DECREASED GLUCOSE; Start 07/08/16 at 15:00 Glucose (Glutose) 15 gm Q15M PRN BUCCAL DECREASED GLUCOSE; Start 07/08/16 at 15: 00 Phenol (Cepastat Lozenge) 1 lozenge Q4 PRN MT SORE THROAT Last administered on 07/09/16 08:07; Admin Dose 1 LOZENGE; Start 07/08/16 at 16:30 ADAM HOOVER Jul 10, 2016 12:58
[2016-07-10 13:00] VITALS: BP 144/73; PULSE 94; RESP 20
[2016-07-10] MEDS: FENTAnyl 2MCG/ML-ROPIV 0.2% 100 ML BAG EPI SCH (14:09)
--- NOTE | 2016-07-10 14:31 | PN ---
DATE: 07/10/2016 POSTOP DAY#4. SUBJECTIVE: Has a little bit of pain in throat. No nausea, no vomiting. Has not passed any bowel movement or any gas yet, sitting in the chair. OBJECTIVE GENERAL: Awake, alert, oriented x3. VITAL SIGNS: Temperature 98.6, heart rate between 80 and 106, respirations 20, blood pressure 173/81 and 155/67, saturation 96% on 2 liter nasal cannula. Huddleston catheter and SCDs in place. NG Tube in place. ABDOMEN: Soft. EXTREMITIES: No calf tenderness. LABORATORY DATA: WBC 9900 today, is 73% segmented which is normal. Hemoglobin 10, hematocrit 29.8. Urine output 1600 mL q.24h. ASSESSMENT: Stable postop day #4. B.Sounds is 3+/4+. Patient has not passed any gas or stool yet. PLAN: Hopefully by tomorrow she is going to pass gas or have a bowel movement. In any case tomorrow we are going to discontinue the Huddleston catheter. Today we will discontinue epidural. Patient will be continued on SAMPLE MAKER HAND Morphine. Will start the patient on ice chips 1 cup q.8h. Dictated By: CAROLYNE HERNANDEZ MD PS/NTS Conf#: [id number] DID#: [id number] MTDD
[2016-07-10] MEDS: CEPASTAT LOZENGE MT PRN (15:52)
[2016-07-10 16:09] VITALS: BP 161/77; PULSE 98; RESP 18
--- NOTE | 2016-07-10 17:01 | CONS ---
Date/Time of Note Date/Time of Note DATE: 07/10/16 TIME: 16:58 Consultation Date/Type/Reason Admit Date/Time Jul 06, 2016 at 06:48 Initial Consult Date 07/06/16 Type of Consultation: Anesthesia Reason for Consultation Colectomy 24 HR Interval Summary Free Text/Dictation HISTORY OF PRESENT ILLNESS: The patient is a 65-year-old female with past medical history positive for hypertension, diabetes mellitus, hypothyroidism and hyperlipidemia. The patient underwent a routine colonoscopy and was noted a large mass in March 2016 which appeared to a well-differentiated adenocarcinoma. The patient was evaluated by Dr. 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 Postoperatively, the patient has experienced some pain and will be admitted for further evaluation and management to medical/surgical floor. PAST MEDICAL HISTORY: Positive for hypertension, hyperlipidemia, diabetes mellitus, hypothyroidism. PAST SURGICAL HISTORY: The patient denies having any surgeries in the past. FAMILY HISTORY: The patient's mother of a stroke. SOCIAL HISTORY: The patient lives at home with family. The patient is a former smoker; however, quit many years ago. The patient denies any illicit drug use. Denies any alcohol use. ALLERGIES: NO KNOWN ALLERGIES. MEDICATIONS ON ADMISSION: 1. Amlodipine. 2. Clonidine. 3. Glipizide. 4. Levothyroxine. 5. Metformin. 6. Nifedipine. 7. Lovastatin. 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 vital signs are stable and she is afebrile. Bowel sounds present, she has passed gas. Epidural Duramorph was given for post-op pain control. patient will be followed up. will continue the epidural infusion with the same rate of 5cc/h. Exam/Review of Systems Vital Signs Vitals Vital Signs Date Time Temp Pulse Resp B/P Pulse Ox O2 Delivery O2 Flow Rate FiO2 07/10/16 16:09 98 18 161/77 100 Nasal Cannula 2.0 07/10/16 07:51 98.6 Intake and Output 07/09/16 07/09/16 07/10/16 15:00 23:00 07:00 Intake Total 100 ml 1100 ml 1500 ml Output Total 50 ml 1200 ml 850 ml Balance 50 ml -100 ml 650 ml Results Result Diagram: 07/10/16 0445 07/10/16 0445 Results 24 hrs Laboratory Tests Test 07/09/16 20:23 07/10/16 04:45 07/10/16 07:53 07/10/16 11:44 Bedside Glucose 177 174 184 Anion Gap 16 Basophils # 0.0 Basophils % 0.5 Blood Morphology Comment Blood Urea Nitrogen 9 Calcium Level 9.1 Carbon Dioxide Level 27 Chloride Level 101 Creatinine 1.05 H Eosinophils # 0.4 Eosinophils % 4.3 Glucose Level 151 Hematocrit 29.8 L Hemoglobin 10.0 L Lymphocytes # 1.3 Lymphocytes % 13.3 L Mean Corpuscular Hemoglobin 28.9 L Mean Corpuscular Hemoglobin Concent 33.5 Mean Corpuscular Volume 86.4 Mean Platelet Volume 8.4 Monocytes # 0.8 Monocytes % 8.1 Neutrophils # 7.3 Neutrophils % 73.8 Nucleated Red Blood Cells # 0.0 Nucleated Red Blood Cells % 0.0 Platelet Count 337 Potassium Level 4.3 Red Blood Count 3.44 L Red Cell Distribution Width 14.4 Sodium Level 140 White Blood Count 9.9 Test 07/10/16 12:23 07/10/16 16:54 Bedside Glucose 222 H 204 Medications Medications Current Medications Hydromorphone HCl (Dilaudid) 0.2 mg Q2H PRN IV PAIN LEVEL 1-5; Start 07/06/16 at 12:00 Hydromorphone HCl (Dilaudid) 0.4 mg Q2H PRN IV PAIN LEVEL 6-10; Start 07/06/16 at 12:00 Morphine Sulfate (morphine) 2 mg Q2H PRN IV PAIN LEVEL 1-5; Start 07/06/16 at 12:00 Morphine Sulfate (morphine) 4 mg Q2H PRN IV PAIN LEVEL 6-10; Start 07/06/16 at 12:00 Diphenhydramine HCl (Benadryl) 25 mg Q4H PRN IV PRURITUS; Start 07/06/16 at 12: 00 Nalbuphine HCl (Nubain) 10 mg Q4H PRN IV PRURITUS; Start 07/06/16 at 12:00 Ondansetron HCl 4 mg 4 mg Q6H PRN IV NAUSEA AND/OR VOMITING; Start 07/06/16 at 12:00 Potassium Chloride/Dextrose/ Sod Cl 1,000 ml @ 125 mls/hr Q8H IV Last administered on 07/10/16 13:49; Admin Dose 125 MLS/HR; Start 07/06/16 at 11:54 Acetaminophen (Ofirmev 1000mg/ 100ml Iv) 100 ml @ 400 mls/hr Q6H PRN IVPB PAIN Last administered on 07/08/16 05:05; Admin Dose 400 MLS/HR; Start 07/06/16 at 12:00 Diagnostic Test (Pha) (Accucheck) 1 ea 02 XX ; Start 07/07/16 at 02:00 Levothyroxine Sodium (Synthroid Iv) 25 mcg DAILY@06 IV Last administered on 07/10 05:51; Admin Dose 25 MCG; Start 07/07/16 at 06:00 Naloxone HCl (Narcan) 0.2 mg Q2M PRN IV FOR RESP RATE 8 OR LESS; Start at 23:30 Hydralazine HCl (Apresoline) 10 mg Q4H PRN IV SBP>160 Last administered on 08:48; Admin Dose 10 MG; Start 07/08/16 at 10:06 Clonidine HCl 1 patch 1 patch Q7D TRANSDERM Last administered on 07/08/16 12:38 ; Admin Dose 1 PATCH; Start 07/08/16 at 12:00 Piperacillin Sod/ Tazobactam Sod (Zosyn 3.375gm/ 100 ml (Pmx)) 100 ml @ 200 mls /hr Q8 IVPB Last administered on 07/10/16 14:05; Admin Dose 200 MLS/HR; Start 07/08/16 at 14:00 Miscellaneous Information 1 ea NOTE XX ; Start 07/08/16 at 15:00 Glucose (Glutose) 15 gm Q15M PRN PO DECREASED GLUCOSE; Start 07/08/16 at 15:00 Glucose (Glutose) 22.5 gm Q15M PRN PO DECREASED GLUCOSE; Start 07/08/16 at 15:00 Dextrose (D50w Syringe) 25 ml Q15M PRN IV DECREASED GLUCOSE; Start 07/08/16 at 15:00 Dextrose (D50w Syringe) 50 ml Q15M PRN IV DECREASED GLUCOSE; Start 07/08/16 at 15:00 Glucagon (Glucagen) 1 mg Q15M PRN IM DECREASED GLUCOSE; Start 07/08/16 at 15:00 Glucose (Glutose) 15 gm Q15M PRN BUCCAL DECREASED GLUCOSE; Start 07/08/16 at 15: 00 Phenol (Cepastat Lozenge) 1 lozenge Q4 PRN MT SORE THROAT Last administered on 07/10/16t 15:52; Admin Dose 1 LOZENGE; Start 07/08/16 at 16:30 ROYCE BLACKMON MD Jul 10, 2016 17:01
[2016-07-10 19:47] VITALS: BP 150/74; PULSE 86; RESP 18
[2016-07-11] MEDS: ACCUCHECK XX SCH (01:18)
[2016-07-11] MEDS: D5W-0.45 NACL + KCL 20 MEQ 1,000 ML IV SCH ×3 (05:24→19:29)
[2016-07-11] MEDS: LEVOTHYROXINE 100 MCG VIAL IV SCH (05:24)
[2016-07-11] MEDS: PIPER-TAZO 3.375 GM IV (PMX) 100 ML IVPB SCH ×3 (05:24→21:02)
[2016-07-11 05:42] LABS: RED BLOOD COUNT 3.31 10^6/ul (4.20-5.40); WHITE BLOOD COUNT 8.7 10^3/ul (4.8-10.8)
[2016-07-11 05:43] LABS: BASOPHILS % 0.5 % (0.0-2.0); EOSINOPHILS # 0.5 10^3/ul (0.0-0.5); EOSINOPHILS % 5.5 % (0.0-7.0); HEMATOCRIT 29.5 % (37.0-47.0); HEMOGLOBIN 9.3 g/dl (12.0-16.0); LYMPHOCYTES # 1.3 10^3/ul (0.8-2.9); LYMPHOCYTES % 14.6 % (15.0-51.0); MEAN CORPUSCULAR HEMOGLOBIN 28.1 pg (29.0-33.0); MEAN CORPUSCULAR HGB CONC 31.5 g/dl (32.0-37.0); MEAN CORPUSCULAR VOLUME 89.1 fl (82.0-101.0); MEAN PLATELET VOLUME 10.2 fl (7.4-10.4); MONOCYTE # 0.7 10^3/ul (0.3-0.9); MONOCYTES % 8.6 % (0.0-11.0); NEUTROPHIL # 6.1 10^3/ul (1.6-7.5); NEUTROPHILS % 70.5 % (39.0-77.0); PLATELET COUNT 340 10^3/UL (140-440); RED CELL DISTRIBUTION WIDTH 13.7 % (11.5-14.5)
[2016-07-11 05:54] LABS: POTASSIUM 4.8 mmol/L (3.5-5.1)
[2016-07-11 05:56] LABS: CREATININE 1.01 mg/dl (0.44-1.00)
[2016-07-11 07:31] VITALS: BP 185/82; RESP 16
[2016-07-11] MEDS: hydrALAzine 20 MG INJ IV PRN ×2 (07:53→19:30)
[2016-07-11] MEDS: INSULIN ASPART [NOVOLOG] 3 ML PEN SC SCH ×4 (08:01→20:07)
[2016-07-11] MEDS: FENTAnyl 2MCG/ML-ROPIV 0.2% 100 ML BAG EPI SCH (08:05)
[2016-07-11 11:00] VITALS: BP 142/75; PULSE 94; RESP 20
--- NOTE | 2016-07-11 12:13 | PN ---
Date/Time of Note Date/Time of Note DATE: 07/11/16 TIME: 12:12 Assessment/Plan VTE Prophylaxis VTE Prophylaxis Intervention: other Lines/Catheters IV Catheter Type (from Nrsg): Peripheral IV Urinary Cath still in place: Yes Reason Cath still needed: skin wounds contaminated by urine Assessment/Plan Chief Complaint/Hosp Course 1. 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 Grant. The patient currently has NG tube to suctioning, epidural pain management by anesthesia. Continue IV fluids, start incentive spirometer 1 hour while patient is awake. 2. Diabetes mellitus type 2. We will continue mild algorithm sliding scale with Accu-Cheks q.6 hours. 3. Hypertension. Continue to monitor blood pressure. Catapres patch and hydralazine p.r.n. for systolic blood pressure above 170. 4. Hypothyroidism. Continue the patient's Synthroid. 5. Hyperlipidemia by history. Problems: Subjective 24 Hr Interval Summary Free Text/Dictation Patient is doing well, no complaints Exam/Review of Systems Vital Signs Vitals Vital Signs Date Time Temp Pulse Resp B/P Pulse Ox O2 Delivery O2 Flow Rate FiO2 07/11/16 07:31 98.2 85 16 185/82 98 07/10/16 21:15 Nasal Cannula 2.0 Intake and Output 07/10/16 07/10/16 07/11/16 15:00 23:00 07:00 Intake Total 100 ml 1005 ml 1450 ml Output Total 1050 ml 1000 ml Balance 100 ml -45 ml 450 ml Exam Constitutional: well developed Head: atraumatic, normocephalic Neck: supple Respiratory: clear to auscultation Cardiovascular: regular rate and rhythm Gastrointestinal: non-tender, soft Results Result Diagram: 07/11/16 0419 07/11/16 0419 Results 24 hrs Laboratory Tests Test 07/10/16 12:23 07/10/16 16:54 07/10/16 19:50 07/11/16 04:19 Bedside Glucose 222 H 204 179 Anion Gap 16 Basophils # 0.0 Basophils % 0.5 Blood Urea Nitrogen 10 Calcium Level 9.0 Carbon Dioxide Level 26 Chloride Level 103 Creatinine 1.01 H Eosinophils # 0.5 Eosinophils % 5.5 Glucose Level 170 Hematocrit 29.5 L Hemoglobin 9.3 L Lymphocytes # 1.3 Lymphocytes % 14.6 L Mean Corpuscular Hemoglobin 28.1 L Mean Corpuscular Hemoglobin Concent 31.5 L Mean Corpuscular Volume 89.1 Mean Platelet Volume 10.2 # Monocytes # 0.7 Monocytes % 8.6 Neutrophils # 6.1 Neutrophils % 70.5 Nucleated Red Blood Cells # 0.0 Nucleated Red Blood Cells % 0.0 Platelet Count 340 Potassium Level 4.8 Red Blood Count 3.31 L Red Cell Distribution Width 13.7 Sodium Level 140 White Blood Count 8.7 Test 07/11/16 07:38 Bedside Glucose 192 Medications Medications Current Medications Hydromorphone HCl (Dilaudid) 0.2 mg Q2H PRN IV PAIN LEVEL 1-5; Start 07/06/16 at 12:00 Hydromorphone HCl (Dilaudid) 0.4 mg Q2H PRN IV PAIN LEVEL 6-10; Start 07/06/16 at 12:00 Morphine Sulfate (morphine) 2 mg Q2H PRN IV PAIN LEVEL 1-5; Start 07/06/16 at 12:00 Morphine Sulfate (morphine) 4 mg Q2H PRN IV PAIN LEVEL 6-10; Start 07/06/16 at 12:00 Diphenhydramine HCl (Benadryl) 25 mg Q4H PRN IV PRURITUS; Start 07/06/16 at 12: 00 Nalbuphine HCl (Nubain) 10 mg Q4H PRN IV PRURITUS; Start 07/06/16 at 12:00 Ondansetron HCl 4 mg 4 mg Q6H PRN IV NAUSEA AND/OR VOMITING; Start 07/06/16 at 12:00 Potassium Chloride/Dextrose/ Sod Cl 1,000 ml @ 125 mls/hr Q8H IV Last administered on 07/11/16 10:23; Admin Dose 125 MLS/HR; Start 07/06/16 at 11:54 Acetaminophen (Ofirmev 1000mg/ 100ml Iv) 100 ml @ 400 mls/hr Q6H PRN IVPB PAIN Last administered on 07/08/16 05:05; Admin Dose 400 MLS/HR; Start 07/06/16 at 12:00 Diagnostic Test (Pha) (Accucheck) 1 ea 02 XX ; Start 07/07/16 at 02:00 Levothyroxine Sodium (Synthroid Iv) 25 mcg DAILY@06 IV Last administered on 07/11 05:24; Admin Dose 25 MCG; Start 07/07/16 at 06:00 Naloxone HCl (Narcan) 0.2 mg Q2M PRN IV FOR RESP RATE 8 OR LESS; Start at 23:30 Hydralazine HCl (Apresoline) 10 mg Q4H PRN IV SBP>160 Last administered on 07:53; Admin Dose 10 MG; Start 07/08/16 at 10:06 Clonidine HCl 1 patch 1 patch Q7D TRANSDERM Last administered on 07/08/16 12:38 ; Admin Dose 1 PATCH; Start 07/08/16 at 12:00 Piperacillin Sod/ Tazobactam Sod (Zosyn 3.375gm/ 100 ml (Pmx)) 100 ml @ 200 mls /hr Q8 IVPB Last administered on 07/11/16 05:24; Admin Dose 200 MLS/HR; Start 07/08/16 at 14:00 Miscellaneous Information 1 ea NOTE XX ; Start 07/08/16 at 15:00 Glucose (Glutose) 15 gm Q15M PRN PO DECREASED GLUCOSE; Start 07/08/16 at 15:00 Glucose (Glutose) 22.5 gm Q15M PRN PO DECREASED GLUCOSE; Start 07/08/16 at 15:00 Dextrose (D50w Syringe) 25 ml Q15M PRN IV DECREASED GLUCOSE; Start 07/08/16 at 15:00 Dextrose (D50w Syringe) 50 ml Q15M PRN IV DECREASED GLUCOSE; Start 07/08/16 at 15:00 Glucagon (Glucagen) 1 mg Q15M PRN IM DECREASED GLUCOSE; Start 07/08/16 at 15:00 Glucose (Glutose) 15 gm Q15M PRN BUCCAL DECREASED GLUCOSE; Start 07/08/16 at 15: 00 Phenol (Cepastat Lozenge) 1 lozenge Q4 PRN MT SORE THROAT Last administered on 07/10/16 15:52; Admin Dose 1 LOZENGE; Start 07/08/16 at 16:30 SHARRI MYLES Jul 11, 2016 12:13
--- NOTE | 2016-07-11 13:16 | PN ---
DATE: 07/11/2016 SUBJECTIVE: No new complaint. Apparently yesterday they started the BOND MANAGER for the patient and they s topped the epidural. Nurse reports that patient the not immediately, but very soon developed sweati ng and appeared to have hypotension and pale color of the skin, so they stopped the BOND MANAGER which is mor phine and they called anesthesiologist. Anesthesiologist recommended to start back the epidural al so they have been started back the epidural and patient is doing fine after that. No bowel movement , no flatus. OBJECTIVE GENERAL: Patient is alert, awake, sitting on the bed. VITAL SIGNS: Temperature 98.2, pulse rate 85 and regular, respirations 16, blood pressure 185/82, s aturation 98% on 2 liters cannula. LABORATORY DATA: WBC is 8700, 70% segmented, hemoglobin 9.3, hematocrit 29.5. Chemistry: Potassi um 4.8, creatinine 1.01 Abdomen is soft. Dressing was changed. The wound is clean. Huddleston still in place. EXTREMITIES: Lower legs no calf tenderness. No pitting edema. Sequential compression devices on t he legs. NG tube in place draining gastric juice. ASSESSMENT: 1. Stable postop day #5 for a left colon resection of cancer of the colon. 2. The patient is doing fine except that she still has not passed any gas or bowel movement. 3. Patient is thirsty. Since the NG tube drainage is not bilious, therefore, it appears that there is no ileus and I am going to start the patient on liquid diet. PLAN: 1. Start on tea and coffee. 2. Clamp NG tube. 3. If the patient becomes nauseous or vomits put the NG tube back on suction. Continue sequential compression device. Continue epidural. Keep Huddleston in place. Dictated By: CAROLYNE HERNANDEZ MD PS/NTS Conf#: [id number] DID#: [id number]
[2016-07-11 19:30] VITALS: BP 184/82; PULSE 84; RESP 18
[2016-07-11 20:05] VITALS: BP 140/70; PULSE 80; RESP 18
[2016-07-12] MEDS: ACCUCHECK XX SCH (01:39)
[2016-07-12] MEDS: PIPER-TAZO 3.375 GM IV (PMX) 100 ML IVPB SCH ×4 (03:05→21:16)
[2016-07-12] MEDS: FENTAnyl 2MCG/ML-ROPIV 0.2% 100 ML BAG EPI SCH ×2 (03:06→20:14)
[2016-07-12] MEDS: D5W-0.45 NACL + KCL 20 MEQ 1,000 ML IV SCH ×2 (03:09→11:30)
[2016-07-12] MEDS: LEVOTHYROXINE 100 MCG VIAL IV SCH (05:42)
[2016-07-12 07:39] VITALS: BP 177/86; PULSE 81; RESP 18
[2016-07-12] MEDS: INSULIN ASPART [NOVOLOG] 3 ML PEN SC SCH ×4 (08:59→21:00)
[2016-07-12] MEDS: CEPASTAT LOZENGE MT PRN (11:30)
--- NOTE | 2016-07-12 11:36 | PN ---
Date/Time of Note Date/Time of Note DATE: 07/12/16 TIME: 11:36 Assessment/Plan VTE Prophylaxis VTE Prophylaxis Intervention: other Lines/Catheters IV Catheter Type (from Nrsg): Peripheral IV Urinary Cath still in place: Yes Reason Cath still needed: skin wounds contaminated by urine Assessment/Plan Chief Complaint/Hosp Course 1. 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 Grant. The patient currently has NG tube to suctioning, epidural pain management by anesthesia. Continue IV fluids, start incentive spirometer 1 hour while patient is awake. 2. Diabetes mellitus type 2. We will continue mild algorithm sliding scale with Accu-Cheks q.6 hours. 3. Hypertension. Continue to monitor blood pressure. Catapres patch and hydralazine p.r.n. for systolic blood pressure above 170. 4. Hypothyroidism. Continue the patient's Synthroid. 5. Hyperlipidemia by history. Problems: Subjective 24 Hr Interval Summary Free Text/Dictation Patient has no complaints Exam/Review of Systems Vital Signs Vitals Vital Signs Date Time Temp Pulse Resp B/P Pulse Ox O2 Delivery O2 Flow Rate FiO2 07/12/16 07:39 98.3 81 18 177/86 95 Room Air 07/11/16 11:00 2.0 Intake and Output 07/11/16 07/11/16 07/12/16 15:00 23:00 07:00 Intake Total 1725 ml 1650 ml Output Total 1000 ml 1300 ml Balance 725 ml 350 ml Exam Constitutional: well developed Head: atraumatic, normocephalic Neck: supple Respiratory: clear to auscultation Cardiovascular: regular rate and rhythm Gastrointestinal: non-tender, soft Extremities: normal pulses Results Result Diagram: 07/11/16 0419 07/11/16 0419 Results 24 hrs Laboratory Tests Test 07/11/16 12:12 07/11/16 16:43 07/11/16 19:26 07/12/16 08:12 Bedside Glucose 182 169 137 165 Medications Medications Current Medications Hydromorphone HCl (Dilaudid) 0.2 mg Q2H PRN IV PAIN LEVEL 1-5; Start 07/06/16 at 12:00 Hydromorphone HCl (Dilaudid) 0.4 mg Q2H PRN IV PAIN LEVEL 6-10; Start 07/06/16 at 12:00 Morphine Sulfate (morphine) 2 mg Q2H PRN IV PAIN LEVEL 1-5; Start 07/06/16 at 12:00 Morphine Sulfate (morphine) 4 mg Q2H PRN IV PAIN LEVEL 6-10; Start 07/06/16 at 12:00 Diphenhydramine HCl (Benadryl) 25 mg Q4H PRN IV PRURITUS; Start 07/06/16 at 12: 00 Nalbuphine HCl (Nubain) 10 mg Q4H PRN IV PRURITUS; Start 07/06/16 at 12:00 Ondansetron HCl 4 mg 4 mg Q6H PRN IV NAUSEA AND/OR VOMITING; Start 07/06/16 at 12:00 Potassium Chloride/Dextrose/ Sod Cl 1,000 ml @ 125 mls/hr Q8H IV Last administered on 07/12/16 11:30; Admin Dose 125 MLS/HR; Start 07/06/16 at 11:54 Acetaminophen (Ofirmev 1000mg/ 100ml Iv) 100 ml @ 400 mls/hr Q6H PRN IVPB PAIN Last administered on 07/08/16 05:05; Admin Dose 400 MLS/HR; Start 07/06/16 at 12:00 Diagnostic Test (Pha) (Accucheck) 1 ea 02 XX ; Start 07/07/16 at 02:00 Levothyroxine Sodium (Synthroid Iv) 25 mcg DAILY@06 IV Last administered on 07/12 05:42; Admin Dose 25 MCG; Start 07/07/16 at 06:00 Naloxone HCl (Narcan) 0.2 mg Q2M PRN IV FOR RESP RATE 8 OR LESS; Start at 23:30 Hydralazine HCl (Apresoline) 10 mg Q4H PRN IV SBP>160 Last administered on 19:30; Admin Dose 10 MG; Start 07/08/16 at 10:06 Clonidine HCl 1 patch 1 patch Q7D TRANSDERM Last administered on 07/08/16 12:38 ; Admin Dose 1 PATCH; Start 07/08/16 at 12:00 Piperacillin Sod/ Tazobactam Sod (Zosyn 3.375gm/ 100 ml (Pmx)) 100 ml @ 200 mls /hr Q8 IVPB Last administered on 07/12/16 05:44; Admin Dose 200 MLS/HR; Start 07/08/16 at 14:00 Miscellaneous Information 1 ea NOTE XX ; Start 07/08/16 at 15:00 Glucose (Glutose) 15 gm Q15M PRN PO DECREASED GLUCOSE; Start 07/08/16 at 15:00 Glucose (Glutose) 22.5 gm Q15M PRN PO DECREASED GLUCOSE; Start 07/08/16 at 15:00 Dextrose (D50w Syringe) 25 ml Q15M PRN IV DECREASED GLUCOSE; Start 07/08/16 at 15:00 Dextrose (D50w Syringe) 50 ml Q15M PRN IV DECREASED GLUCOSE; Start 07/08/16 at 15:00 Glucagon (Glucagen) 1 mg Q15M PRN IM DECREASED GLUCOSE; Start 07/08/16 at 15:00 Glucose (Glutose) 15 gm Q15M PRN BUCCAL DECREASED GLUCOSE; Start 07/08/16 at 15: 00 Phenol (Cepastat Lozenge) 1 lozenge Q4 PRN MT SORE THROAT Last administered on 07/12/16 11:30; Admin Dose 1 LOZENGE; Start 07/08/16 at 16:30 SHARRI MYLES Jul 12, 2016 11:36
--- NOTE | 2016-07-12 16:10 | CONS ---
Date/Time of Note Date/Time of Note DATE: 07/12/16 TIME: 16:07 Consultation Date/Type/Reason Admit Date/Time Jul 06, 2016 at 06:48 Initial Consult Date 07/06/16 Type of Consultation: Anesthesia Reason for Consultation Colectomy 24 HR Interval Summary Free Text/Dictation HISTORY OF PRESENT ILLNESS: The patient is a 65-year-old female with past medical history positive for hypertension, diabetes mellitus, hypothyroidism and hyperlipidemia. The patient underwent a routine colonoscopy and was noted a large mass in March 2016 which appeared to a well-differentiated adenocarcinoma. The patient was evaluated by Dr. 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 Postoperatively, the patient has experienced some pain and will be admitted for further evaluation and management to medical/surgical floor. PAST MEDICAL HISTORY: Positive for hypertension, hyperlipidemia, diabetes mellitus, hypothyroidism. PAST SURGICAL HISTORY: The patient denies having any surgeries in the past. FAMILY HISTORY: The patient's mother of a stroke. SOCIAL HISTORY: The patient lives at home with family. The patient is a former smoker; however, quit many years ago. The patient denies any illicit drug use. Denies any alcohol use. ALLERGIES: NO KNOWN ALLERGIES. MEDICATIONS ON ADMISSION: 1. Amlodipine. 2. Clonidine. 3. Glipizide. 4. Levothyroxine. 5. Metformin. 6. Nifedipine. 7. Lovastatin. POD# 6 She is doing well comfortably laying in her bed has minimal pain, her epidural was stopped earlier and BED LASTER started by primery team request, during her ambulation she became very dizzy and did not tolerate Morphine IV, POD# 6 Thoracic Epidural catheter in place, catheter is clean and dressing is intact, Infusion rate restarted at 5cc/h, pain is well controlled, no sensory or motor deficit, no apnea noted, no itching or nausea or vomiting reported. vital signs are stable and she is afebrile. Bowel sounds present, she has passed gas. Epidural Duramorph was given for post-op pain control. patient will be followed up. will continue the epidural infusion with the same rate of 5cc/h. Continue the Epidural infusion. Will follow up. Exam/Review of Systems Vital Signs Vitals Vital Signs Date Time Temp Pulse Resp B/P Pulse Ox O2 Delivery O2 Flow Rate FiO2 07/12/16 07:39 98.3 81 18 177/86 95 Room Air 07/11/16 11:00 2.0 Intake and Output 07/11/16 07/11/16 07/12/16 15:00 23:00 07:00 Intake Total 1725 ml 1650 ml Output Total 1000 ml 1300 ml Balance 725 ml 350 ml Results Result Diagram: 07/11/16 0419 07/11/16 0419 Results 24 hrs Laboratory Tests Test 07/11/16 16:43 07/11/16 19:26 07/12/16 08:12 07/12/16 12:07 Bedside Glucose 169 137 165 163 Medications Medications Current Medications Hydromorphone HCl (Dilaudid) 0.2 mg Q2H PRN IV PAIN LEVEL 1-5; Start 07/06/16 at 12:00 Hydromorphone HCl (Dilaudid) 0.4 mg Q2H PRN IV PAIN LEVEL 6-10; Start 07/06/16 at 12:00 Morphine Sulfate (morphine) 2 mg Q2H PRN IV PAIN LEVEL 1-5; Start 07/06/16 at 12:00 Morphine Sulfate (morphine) 4 mg Q2H PRN IV PAIN LEVEL 6-10; Start 07/06/16 at 12:00 Diphenhydramine HCl (Benadryl) 25 mg Q4H PRN IV PRURITUS; Start 07/06/16 at 12: 00 Nalbuphine HCl (Nubain) 10 mg Q4H PRN IV PRURITUS; Start 07/06/16 at 12:00 Ondansetron HCl 4 mg 4 mg Q6H PRN IV NAUSEA AND/OR VOMITING; Start 07/06/16 at 12:00 Potassium Chloride/Dextrose/ Sod Cl 1,000 ml @ 125 mls/hr Q8H IV Last administered on 07/12/16 11:30; Admin Dose 125 MLS/HR; Start 07/06/16 at 11:54 Acetaminophen (Ofirmev 1000mg/ 100ml Iv) 100 ml @ 400 mls/hr Q6H PRN IVPB PAIN Last administered on 07/08/16 05:05; Admin Dose 400 MLS/HR; Start 07/06/16 at 12:00 Diagnostic Test (Pha) (Accucheck) 1 ea 02 XX ; Start 07/07/16 at 02:00 Levothyroxine Sodium (Synthroid Iv) 25 mcg DAILY@06 IV Last administered on 07/12 05:42; Admin Dose 25 MCG; Start 07/07/16 at 06:00 Naloxone HCl (Narcan) 0.2 mg Q2M PRN IV FOR RESP RATE 8 OR LESS; Start at 23:30 Hydralazine HCl (Apresoline) 10 mg Q4H PRN IV SBP>160 Last administered on 19:30; Admin Dose 10 MG; Start 07/08/16 at 10:06 Clonidine HCl 1 patch 1 patch Q7D TRANSDERM Last administered on 07/08/16 12:38 ; Admin Dose 1 PATCH; Start 07/08/16 at 12:00 Piperacillin Sod/ Tazobactam Sod (Zosyn 3.375gm/ 100 ml (Pmx)) 100 ml @ 200 mls /hr Q8 IVPB Last administered on 07/12/16 05:44; Admin Dose 200 MLS/HR; Start 07/08/16 at 14:00 Miscellaneous Information 1 ea NOTE XX ; Start 07/08/16 at 15:00 Glucose (Glutose) 15 gm Q15M PRN PO DECREASED GLUCOSE; Start 07/08/16 at 15:00 Glucose (Glutose) 22.5 gm Q15M PRN PO DECREASED GLUCOSE; Start 07/08/16 at 15:00 Dextrose (D50w Syringe) 25 ml Q15M PRN IV DECREASED GLUCOSE; Start 07/08/16 at 15:00 Dextrose (D50w Syringe) 50 ml Q15M PRN IV DECREASED GLUCOSE; Start 07/08/16 at 15:00 Glucagon (Glucagen) 1 mg Q15M PRN IM DECREASED GLUCOSE; Start 07/08/16 at 15:00 Glucose (Glutose) 15 gm Q15M PRN BUCCAL DECREASED GLUCOSE; Start 07/08/16 at 15: 00 Phenol (Cepastat Lozenge) 1 lozenge Q4 PRN MT SORE THROAT Last administered on 07/12/16 11:30; Admin Dose 1 LOZENGE; Start 07/08/16 at 16:30 ROYCE BLACKMON MD Jul 12, 2016 16:10
--- NOTE | 2016-07-12 16:52 | PN ---
DATE: 07/12/2016 SUBJECTIVE: Has passed a lot of gas. No nausea, no vomiting. Has tolerated clear liquids. OBJECTIVE VITAL SIGNS: Stable, afebrile, temperature 98.3, heart rate 81, respiration 18 , blood pressure 177/86, saturation 95% room air. ABDOMEN: Soft, bowel sounds present. EXTREMITIES: Legs no calf tenderness. NG tube was removed. Sequential compression device in place. Epidural is in place. (Per the anesthesiologist, they are planning to remove the epidural on Wednesday). LABORATORY DATA: Not done today. ASSESSMENT: Patient is postoperative day #6 for his left colon resection, she is doing fine. They have started clear liquids and he is tolerating, NG tube was removed today. Continue clear liquids until Wednesday when the patient gets epidural removed and ambulates and then we will advance the diet to a solid diet. Remove the Huddleston on Wednesday. Dictated By: CAROLYNE HERNANDEZ MD PS/NTS Conf#: [id number] DID#: [id number] MTDD
[2016-07-12 19:27] VITALS: BP 136/81; RESP 18
[2016-07-12 19:36] VITALS: BP 146/66; RESP 18
[2016-07-13] MEDS: D5W-0.45 NACL + KCL 20 MEQ 1,000 ML IV SCH ×4 (00:48→19:54)
[2016-07-13] MEDS: ACCUCHECK XX SCH (02:00)
[2016-07-13] MEDS: PIPER-TAZO 3.375 GM IV (PMX) 100 ML IVPB SCH ×3 (06:05→20:36)
[2016-07-13] MEDS: LEVOTHYROXINE 100 MCG VIAL IV SCH (06:05)
[2016-07-13 08:25] VITALS: BP 163/83; RESP 20
[2016-07-13] MEDS: INSULIN ASPART [NOVOLOG] 3 ML PEN SC SCH ×4 (09:43→20:36)
[2016-07-13] MEDS ORDERED: HYDROCODONE/APAP (5/325) TAB PO PRN (10:00)
--- NOTE | 2016-07-13 11:30 | PN ---
DATE: 07/13/2016 SUBJECTIVE: Has had bowel movement, but she does not have the feeling of that because of the epidur al. OBJECTIVE: VITAL SIGNS: Temperature 98, respiratory rate 28, heart rate 79, blood pressure 163/83, saturation 96% on 2 liter nasal cannula. LABORATORY DATA: WBC 8700 with 70% segmented, hemoglobin 9.3, hematocrit 29.5. Blood sugar 154. ABDOMEN: Soft, bowel sounds present. Epidural is running. Huddleston catheter still is in place. ASSESSMENT: A 65-year-old female status post left colon resection because of a near obstructing can cer. The patient has tolerated a liquid diet, has had a bowel movement. The patient still has epid ural today the anesthesiologist to remove it and then after that the patient will be ambulated at the appropriate time and then discontinue the [place] catheter. If everything goes okay, we will start patient on a soft diet tomorrow in preparation for discharge. Dictated By: CAROLYNE PRADHAN/JOSE Conf#: [id number] DID#: [id number]
[2016-07-13] MEDS: HYDROCODONE/APAP (5/325) TAB PO PRN ×2 (13:14→14:18)
--- NOTE | 2016-07-13 13:18 | CONS ---
Date/Time of Note Date/Time of Note DATE: 07/13/16 TIME: 13:15 Consultation Date/Type/Reason Admit Date/Time Jul 06, 2016 at 06:48 Initial Consult Date 07/06/16 Type of Consultation: Anesthesia Reason for Consultation Colectomy pain management 24 HR Interval Summary Free Text/Dictation HISTORY OF PRESENT ILLNESS: The patient is a 65-year-old female with past medical history positive for hypertension, diabetes mellitus, hypothyroidism and hyperlipidemia. The patient underwent a routine colonoscopy and was noted a large mass in March 2016 which appeared to a well-differentiated adenocarcinoma. The patient was evaluated by Dr. 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 Postoperatively, the patient has experienced some pain and will be admitted for further evaluation and management to medical/surgical floor. PAST MEDICAL HISTORY: Positive for hypertension, hyperlipidemia, diabetes mellitus, hypothyroidism. PAST SURGICAL HISTORY: The patient denies having any surgeries in the past. FAMILY HISTORY: The patient's mother of a stroke. SOCIAL HISTORY: The patient lives at home with family. The patient is a former smoker; however, quit many years ago. The patient denies any illicit drug use. Denies any alcohol use. ALLERGIES: NO KNOWN ALLERGIES. MEDICATIONS ON ADMISSION: 1. Amlodipine. 2. Clonidine. 3. Glipizide. 4. Levothyroxine. 5. Metformin. 6. Nifedipine. 7. Lovastatin. POD# 7 She is doing well comfortably laying in her bed has minimal pain, her epidural was stopped earlier and [employer] started by primary team request, during her ambulation she became very dizzy and did not tolerate Morphine IV, POD# 7 Thoracic Epidural catheter in place, catheter is clean and dressing is intact, Epidural catheter Removed, catheter site is clean and tip is intact and witnessed by RN, pain is well controlled, no sensory or motor deficit, no apnea noted, no itching or nausea or vomiting reported. vital signs are stable and she is afebrile. Bowel sounds present, she has passed gas. Patient is tolerating PO meds and PO liquid diet started. Primary team will follow up, Thank you very much for consultation, pls re- consult PRN. Exam/Review of Systems Vital Signs Vitals Vital Signs Date Time Temp Pulse Resp B/P Pulse Ox O2 Delivery O2 Flow Rate FiO2 07/13/16 08:25 98.7 79 20 163/83 96 07/12/16 07:39 Room Air 07/11/16 11:00 2.0 Intake and Output 07/12/16 07/12/16 07/13/16 15:00 23:00 07:00 Intake Total 5 ml 1810 ml 1850 ml Output Total 1250 ml 1450 ml Balance 5 ml 560 ml 400 ml Results Result Diagram: 07/11/16 0419 07/11/16 0419 Results 24 hrs Laboratory Tests Test 07/12/16 17:03 07/12/16 21:13 07/13/16 08:07 07/13/16 11:41 Bedside Glucose 139 178 154 158 Medications Medications Current Medications Hydromorphone HCl (Dilaudid) 0.2 mg Q2H PRN IV PAIN LEVEL 1-5; Start 07/06/16 at 12:00 Hydromorphone HCl (Dilaudid) 0.4 mg Q2H PRN IV PAIN LEVEL 6-10; Start 07/06/16 at 12:00 Morphine Sulfate (morphine) 2 mg Q2H PRN IV PAIN LEVEL 1-5; Start 07/06/16 at 12:00 Morphine Sulfate (morphine) 4 mg Q2H PRN IV PAIN LEVEL 6-10; Start 07/06/16 at 12:00 Diphenhydramine HCl (Benadryl) 25 mg Q4H PRN IV PRURITUS; Start 07/06/16 at 12: 00 Nalbuphine HCl (Nubain) 10 mg Q4H PRN IV PRURITUS; Start 07/06/16 at 12:00 Ondansetron HCl 4 mg 4 mg Q6H PRN IV NAUSEA AND/OR VOMITING; Start 07/06/16 at 12:00 Potassium Chloride/Dextrose/ Sod Cl 1,000 ml @ 125 mls/hr Q8H IV Last administered on 07/13/16 00:48; Admin Dose 125 MLS/HR; Start 07/06/16 at 11:54 Acetaminophen (Ofirmev 1000mg/ 100ml Iv) 100 ml @ 400 mls/hr Q6H PRN IVPB PAIN Last administered on 07/08/16 05:05; Admin Dose 400 MLS/HR; Start 07/06/16 at 12:00 Diagnostic Test (Pha) (Accucheck) 1 ea 02 XX ; Start 07/07/16 at 02:00 Levothyroxine Sodium (Synthroid Iv) 25 mcg DAILY@06 IV Last administered on 07/13 06:05; Admin Dose 25 MCG; Start 07/07/16 at 06:00 Naloxone HCl (Narcan) 0.2 mg Q2M PRN IV FOR RESP RATE 8 OR LESS; Start at 23:30 Hydralazine HCl (Apresoline) 10 mg Q4H PRN IV SBP>160 Last administered on 19:30; Admin Dose 10 MG; Start 07/08/16 at 10:06 Clonidine HCl 1 patch 1 patch Q7D TRANSDERM Last administered on 07/08/16 12:38 ; Admin Dose 1 PATCH; Start 07/08/16 at 12:00 Piperacillin Sod/ Tazobactam Sod (Zosyn 3.375gm/ 100 ml (Pmx)) 100 ml @ 200 mls /hr Q8 IVPB Last administered on 07/13/16 06:05; Admin Dose 200 MLS/HR; Start 07/08/16 at 14:00 Miscellaneous Information 1 ea NOTE XX ; Start 07/08/16 at 15:00 Glucose (Glutose) 15 gm Q15M PRN PO DECREASED GLUCOSE; Start 07/08/16 at 15:00 Glucose (Glutose) 22.5 gm Q15M PRN PO DECREASED GLUCOSE; Start 07/08/16 at 15:00 Dextrose (D50w Syringe) 25 ml Q15M PRN IV DECREASED GLUCOSE; Start 07/08/16 at 15:00 Dextrose (D50w Syringe) 50 ml Q15M PRN IV DECREASED GLUCOSE; Start 07/08/16 at 15:00 Glucagon (Glucagen) 1 mg Q15M PRN IM DECREASED GLUCOSE; Start 07/08/16 at 15:00 Glucose (Glutose) 15 gm Q15M PRN BUCCAL DECREASED GLUCOSE; Start 07/08/16 at 15: 00 Phenol (Cepastat Lozenge) 1 lozenge Q4 PRN MT SORE THROAT Last administered on 07/12/16 11:30; Admin Dose 1 LOZENGE; Start 07/08/16 at 16:30 Acetaminophen/ Hydrocodone Bitart ([place] (5/325)) 1 tab Q4H PRN PO PAIN LEVEL 4 -6; Start 07/13/16 at 10:00 Acetaminophen/ Hydrocodone Bitart ([place] (5/)) 2 tab Q4H PRN PO PAIN LEVEL 7 -10; Start 07/13/16 at 10:00 ROYCE BLACKMON MD Jul 13, 2016 13:17
--- NOTE | 2016-07-13 14:18 | PN ---
Date/Time of Note Date/Time of Note DATE: 07/13/16 TIME: 14:14 Assessment/Plan VTE Prophylaxis VTE Prophylaxis Intervention: SCD's Lines/Catheters IV Catheter Type (from Nrs): Peripheral IV Central line still needed: Yes Urinary Cath still in place: No Assessment/Plan Chief Complaint/Hosp Course ASSESSMENT AND PLAN: 1. 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 Grant. Continue incentive spirometer 1 hour while patient is awake. Encourage ambulation. Advance diet per surgery. 2. Diabetes mellitus type 2. Continue mild algorithm sliding scale with Accu- Cheks q.6 hours. 3. Hypertension. Continue to monitor blood pressure. Catapres patch and hydralazine p.r.n. for systolic blood pressure above 170. 4. Hypothyroidism. Continue the patient's Synthroid. 5. Hyperlipidemia by history. Patient's condition and plan of care discussed with Dr. Purvis Sequential compression devices for deep venous thrombosis prophylaxis. Further recommendations based on clinical course. Plan of care discussed with Dr. Baker. Problems: Subjective 24 Hr Interval Summary Free Text/Dictation Patient started on full liquid diet, tolerates it well, epidural analgesia discontinued, patient had bowel movement, incontinent. Pain is well controlled with [place] Exam/Review of Systems Vital Signs Vitals Vital Signs Date Time Temp Pulse Resp B/P Pulse Ox O2 Delivery O2 Flow Rate FiO2 07/13/16 08:25 98.7 79 20 163/83 96 07/12/16 07:39 Room Air 07/11/16 11:00 2.0 Intake and Output 07/12/16 07/12/16 07/13/16 15:00 23:00 07:00 Intake Total 5 ml 1810 ml 1850 ml Output Total 1250 ml 1450 ml Balance 5 ml 560 ml 400 ml Exam GENERAL: A well-developed, obese female, awake alert. HEENT: Head is atraumatic, normocephalic. NECK: Supple, no cervical lymphadenopathy, no thyromegaly. CHEST: Clear bilaterally. There are no rhonchi, wheezes, rales noted. CARDIOVASCULAR: Normal S1, S2. No murmurs, gallops, clicks, rubs noted. ABDOMEN: Status post surgery with a midline incision intact with dressing. Bowel, bowel sounds present. EXTREMITIES: There is no edema, clubbing, cyanosis. Pulses equal bilaterally 2 +. SKIN: There is rash, petechiae noted. NEUROLOGIC: Patient is awake, alert and oriented x4 Results Result Diagram: 07/11/16 0419 07/11/16 0419 Results 24 hrs Laboratory Tests Test 07/12/16 17:03 07/12/16 21:13 07/13/16 08:07 07/13/16 11:41 Bedside Glucose 139 178 154 158 Medications Medications Current Medications Hydromorphone HCl (Dilaudid) 0.2 mg Q2H PRN IV PAIN LEVEL 1-5; Start 07/06/16 at 12:00 Hydromorphone HCl (Dilaudid) 0.4 mg Q2H PRN IV PAIN LEVEL 6-10; Start 07/06/16 at 12:00 Morphine Sulfate (morphine) 2 mg Q2H PRN IV PAIN LEVEL 1-5; Start 07/06/16 at 12:00 Morphine Sulfate (morphine) 4 mg Q2H PRN IV PAIN LEVEL 6-10; Start 07/06/16 at 12:00 Diphenhydramine HCl (Benadryl) 25 mg Q4H PRN IV PRURITUS; Start 07/06/16 at 12: 00 Nalbuphine HCl (Nubain) 10 mg Q4H PRN IV PRURITUS; Start 07/06/16 at 12:00 Ondansetron HCl 4 mg 4 mg Q6H PRN IV NAUSEA AND/OR VOMITING; Start 07/06/16 at 12:00 Potassium Chloride/Dextrose/ Sod Cl 1,000 ml @ 125 mls/hr Q8H IV Last administered on 07/13/16 13:13; Admin Dose 125 MLS/HR; Start 07/06/16 at 11:54 Acetaminophen (Ofirmev 1000mg/ 100ml Iv) 100 ml @ 400 mls/hr Q6H PRN IVPB PAIN Last administered on 07/08/16 05:05; Admin Dose 400 MLS/HR; Start 07/06/16 at 12:00 Diagnostic Test (Pha) (Accucheck) 1 ea 02 XX ; Start 07/07/16 at 02:00 Levothyroxine Sodium (Synthroid Iv) 25 mcg DAILY@06 IV Last administered on 07/13 06:05; Admin Dose 25 MCG; Start 07/07/16 at 06:00 Naloxone HCl (Narcan) 0.2 mg Q2M PRN IV FOR RESP RATE 8 OR LESS; Start at 23:30 Hydralazine HCl (Apresoline) 10 mg Q4H PRN IV SBP>160 Last administered on 19:30; Admin Dose 10 MG; Start 07/08/16 at 10:06 Clonidine HCl 1 patch 1 patch Q7D TRANSDERM Last administered on 07/08/16 12:38 ; Admin Dose 1 PATCH; Start 07/08/16 at 12:00 Piperacillin Sod/ Tazobactam Sod (Zosyn 3.375gm/ 100 ml (Pmx)) 100 ml @ 200 mls /hr Q8 IVPB Last administered on 07/13/16 13:13; Admin Dose 200 MLS/HR; Start 07/08/16 at 14:00 Miscellaneous Information 1 ea NOTE XX ; Start 07/08/16 at 15:00 Glucose (Glutose) 15 gm Q15M PRN PO DECREASED GLUCOSE; Start 07/08/16 at 15:00 Glucose (Glutose) 22.5 gm Q15M PRN PO DECREASED GLUCOSE; Start 07/08/16 at 15:00 Dextrose (D50w Syringe) 25 ml Q15M PRN IV DECREASED GLUCOSE; Start 07/08/16 at 15:00 Dextrose (D50w Syringe) 50 ml Q15M PRN IV DECREASED GLUCOSE; Start 07/08/16 at 15:00 Glucagon (Glucagen) 1 mg Q15M PRN IM DECREASED GLUCOSE; Start 07/08/16 at 15:00 Glucose (Glutose) 15 gm Q15M PRN BUCCAL DECREASED GLUCOSE; Start 07/08/16 at 15: 00 Phenol (Cepastat Lozenge) 1 lozenge Q4 PRN MT SORE THROAT Last administered on 07/12/16 11:30; Admin Dose 1 LOZENGE; Start 07/08/16 at 16:30 Acetaminophen/ Hydrocodone Bitart ([place] (5/325)) 1 tab Q4H PRN PO PAIN LEVEL 4 -6 Last administered on 07/13/16 13:14; Admin Dose 1 TAB; Start 07/13/16 at 10:00 Acetaminophen/ Hydrocodone Bitart ([place] (5/325)) 2 tab Q4H PRN PO PAIN LEVEL 7 -10; Start 07/13/16 at 10:00 ADAM HOOVER Jul 13, 2016 14:18
[2016-07-13] MEDS: hydrALAzine 20 MG INJ IV PRN (15:17)
[2016-07-13 16:57] VITALS: BP 136/89; PULSE 76; RESP 18
[2016-07-13 20:12] VITALS: BP 139/67; RESP 18
[2016-07-14] MEDS: ACCUCHECK XX SCH (02:00)
[2016-07-14] MEDS: HYDROCODONE/APAP (5/325) TAB PO PRN (04:15)
[2016-07-14] MEDS: LEVOTHYROXINE 100 MCG VIAL IV SCH (05:35)
[2016-07-14] MEDS: PIPER-TAZO 3.375 GM IV (PMX) 100 ML IVPB SCH ×3 (05:36→21:21)
[2016-07-14] MEDS: D5W-0.45 NACL + KCL 20 MEQ 1,000 ML IV SCH ×2 (05:37→11:54)
[2016-07-14 05:38] LABS: BASOPHILS % 0.5 % (0.0-2.0); EOSINOPHILS # 0.4 10^3/ul (0.0-0.5); EOSINOPHILS % 4.9 % (0.0-7.0); HEMATOCRIT 28.5 % (37.0-47.0); HEMOGLOBIN 9.5 g/dl (12.0-16.0); LYMPHOCYTES # 1.1 10^3/ul (0.8-2.9); LYMPHOCYTES % 12.4 % (15.0-51.0); MEAN CORPUSCULAR HEMOGLOBIN 28.6 pg (29.0-33.0); MEAN CORPUSCULAR HGB CONC 33.3 g/dl (32.0-37.0); MEAN CORPUSCULAR VOLUME 85.7 fl (82.0-101.0); MEAN PLATELET VOLUME 8.2 fl (7.4-10.4); MONOCYTE # 0.7 10^3/ul (0.3-0.9); NEUTROPHIL # 6.7 10^3/ul (1.6-7.5); NEUTROPHILS % 74.2 % (39.0-77.0); PLATELET COUNT 376 10^3/UL (140-440); RED BLOOD COUNT 3.33 10^6/ul (4.20-5.40); RED CELL DISTRIBUTION WIDTH 14.5 % (11.5-14.5); UNCORRECTED WBC 9.1 10^3/ul (4.8-10.8); WHITE BLOOD COUNT 9.1 10^3/ul (4.8-10.8)
[2016-07-14 05:51] LABS: POTASSIUM 4.2 mmol/L (3.5-5.1)
[2016-07-14 05:54] LABS: CREATININE 1.06 mg/dl (0.44-1.00)
[2016-07-14 05:55] LABS: CALCIUM 9.1 mg/dl (8.4-10.2)
[2016-07-14 05:59] LABS: CONDITION 1; LH ANALYZER COMMENTS 1
[2016-07-14 07:45] VITALS: BP 137/63; RESP 18
[2016-07-14] MEDS: INSULIN ASPART [NOVOLOG] 3 ML PEN SC SCH ×4 (07:50→21:00)
[2016-07-14] MEDS: 1/2 NS + KCL 20 MEQ 1,000 ML IV SCH (14:06)
--- NOTE | 2016-07-14 14:07 | PN ---
Date/Time of Note Date/Time of Note DATE: 07/14/16 TIME: 14:01 Assessment/Plan VTE Prophylaxis VTE Prophylaxis Intervention: SCD's Lines/Catheters IV [facility] Type [facility]from [facility]): Peripheral IV Urinary Cath still in place: No Assessment/Plan Chief Complaint/Hosp Course ASSESSMENT AND PLAN: 1. 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 Grant. Continue incentive spirometer 1 hour while patient is awake. Encourage ambulation. Advance diet per surgery. 2. Diabetes mellitus type 2. Continue mild algorithm sliding scale with Accu- Cheks q.6 hours. 3. Hypertension. Continue Norvasc and Procardia, hydralazine p.r.n. for systolic blood pressure above 170. 4. Hypothyroidism. Continue the patient's Synthroid. 5. Hyperlipidemia by history. Sequential compression devices for deep venous thrombosis prophylaxis. Further recommendations based on clinical course. Plan of care discussed with Dr. Baker. Problems: Subjective 24 Hr Interval Summary Free Text/Dictation Patient tolerates liquid diet well, patient had bowel movement today and last night, pain is well controlled, patient has episodes of elevated blood pressure requiring as needed hydralazine, restart patient's antihypertensive home medications since patient tolerates p.o. well. Exam/Review of Systems Vital Signs Vitals Vital Signs Date Time Temp Pulse Resp B/P Pulse Ox O2 Delivery O2 Flow Rate FiO2 07/14/16 07:45 98.0 71 18 137/63 98 07/13/16 16:57 Room Air 07/11/16 11:00 2.0 Intake and Output 07/13/16 07/13/16 07/14/16 15:00 23:00 07:00 Intake Total 1930 ml Balance 1930 ml Exam GENERAL: A well-developed, obese female, awake alert. HEENT: Head is atraumatic, normocephalic. NECK: Supple, no cervical lymphadenopathy, no thyromegaly. CHEST: Clear bilaterally. There are no rhonchi, wheezes, rales noted. CARDIOVASCULAR: Normal S1, S2. No murmurs, gallops, clicks, rubs noted. ABDOMEN: Status post surgery with a midline incision intact with dressing. Bowel, bowel sounds present. EXTREMITIES: There is no edema, clubbing, cyanosis. Pulses equal bilaterally 2 +. SKIN: There is rash, petechiae noted. NEUROLOGIC: Patient is awake, alert and oriented x4 Results Result Diagram: 07/14/16 0439 07/14/16 0439 Results 24 hrs Laboratory Tests Test 07/13/16 16:46 07/13/16 20:36 07/14/16 04:39 07/14/16 08:04 Bedside Glucose 138 161 137 Anion Gap 15 Basophils # 0.0 Basophils % 0.5 Blood Morphology Comment Blood Urea Nitrogen 7 Calcium Level 9.1 Carbon Dioxide Level 22 Chloride Level 107 Creatinine 1.06 H Eosinophils # 0.4 Eosinophils % 4.9 Glucose Level 152 Hematocrit 28.5 L Hemoglobin 9.5 L Lymphocytes # 1.1 Lymphocytes % 12.4 L Mean Corpuscular Hemoglobin 28.6 L Mean Corpuscular Hemoglobin Concent 33.3 Mean Corpuscular Volume 85.7 Mean Platelet Volume 8.2 Monocytes # 0.7 Monocytes % 8.0 Neutrophils # 6.7 Neutrophils % 74.2 Nucleated Red Blood Cells # 0.0 Nucleated Red Blood Cells % 0.0 Platelet Count 376 Potassium Level 4.2 Red Blood Count 3.33 L Red Cell Distribution Width 14.5 Sodium Level 140 White Blood Count 9.1 Test 07/14/16 12:36 Bedside Glucose 136 Medications Medications Current Medications Hydromorphone HCl (Dilaudid) 0.2 mg Q2H PRN IV PAIN LEVEL 1-5; Start 07/06/16 at 12:00 Hydromorphone HCl (Dilaudid) 0.4 mg Q2H PRN IV PAIN LEVEL 6-10 Last administered on 07/13/16t 16:53; Admin Dose 0.4 MG; Start 07/06/16 at 12:00 Morphine Sulfate (morphine) 2 mg Q2H PRN IV PAIN LEVEL 1-5; Start 07/06/16 at 12:00 Morphine Sulfate (morphine) 4 mg Q2H PRN IV PAIN LEVEL 6-10; Start 07/06/16 at 12:00 Diphenhydramine HCl (Benadryl) 25 mg Q4H PRN IV PRURITUS; Start 07/06/16 at 12: 00 Nalbuphine HCl (Nubain) 10 mg Q4H PRN IV PRURITUS; Start 07/06/16 at 12:00 Ondansetron HCl 4 mg 4 mg Q6H PRN IV NAUSEA AND/OR VOMITING Last administered on 07/13/16 15:16; Admin Dose 4 MG; Start 07/06/16 at 12:00 Acetaminophen (Ofirmev 1000mg/ 100ml Iv) 100 ml @ 400 mls/hr Q6H PRN IVPB PAIN Last administered on 07/08/16 05:05; Admin Dose 400 MLS/HR; Start 07/06/16 at 12:00 Diagnostic Test (Pha) (Accucheck) 1 ea 02 XX ; Start 07/07/16 at 02:00 Levothyroxine Sodium (Synthroid Iv) 25 mcg DAILY@06 IV Last administered on 07/14 05:35; Admin Dose 25 MCG; Start 07/07/16 at 06:00 Naloxone HCl (Narcan) 0.2 mg Q2M PRN IV FOR RESP RATE 8 OR LESS; Start at 23:30 Hydralazine HCl (Apresoline) 10 mg Q4H PRN IV SBP>160 Last administered on 15:17; Admin Dose 10 MG; Start 07/08/16 at 10:06 Clonidine HCl 1 patch 1 patch Q7D TRANSDERM Last administered on 07/08/16 12:38 ; Admin Dose 1 PATCH; Start 07/08/16 at 12:00 Piperacillin Sod/ Tazobactam Sod (Zosyn 3.375gm/ 100 ml (Pmx)) 100 ml @ 200 mls /hr Q8 IVPB Last administered on 07/14/16 05:36; Admin Dose 200 MLS/HR; Start 07/08/16 at 14:00 Miscellaneous Information 1 ea NOTE XX ; Start 07/08/16 at 15:00 Glucose (Glutose) 15 gm Q15M PRN PO DECREASED GLUCOSE; Start 07/08/16 at 15:00 Glucose (Glutose) 22.5 gm Q15M PRN PO DECREASED GLUCOSE; Start 07/08/16 at 15:00 Dextrose (D50w Syringe) 25 ml Q15M PRN IV DECREASED GLUCOSE; Start 07/08/16 at 15:00 Dextrose (D50w Syringe) 50 ml Q15M PRN IV DECREASED GLUCOSE; Start 07/08/16 at 15:00 Glucagon (Glucagen) 1 mg Q15M PRN IM DECREASED GLUCOSE; Start 07/08/16 at 15:00 Glucose (Glutose) 15 gm Q15M PRN BUCCAL DECREASED GLUCOSE; Start 07/08/16 at 15: 00 Phenol (Cepastat Lozenge) 1 lozenge Q4 PRN MT SORE THROAT Last administered on 07/12/16 11:30; Admin Dose 1 LOZENGE; Start 07/08/16 at 16:30 Acetaminophen/ Hydrocodone Bitart ([place] (5/325)) 1 tab Q4H PRN PO PAIN LEVEL 4 -6 Last administered on 07/14/16 04:15; Admin Dose 1 TAB; Start 07/13/16 at 10:00 Acetaminophen/ Hydrocodone Bitart 2 tab 2 tab Q4H PRN PO PAIN LEVEL 7-10; Start 07/13/16 at 10:00 Potassium Chloride/Sodium Chloride (1/2 NS + KCl 20 Meq) 1,000 ml @ 40 mls/hr Q24H IV ; Start 07/14/16 at 13:00 ADAM HOOVER Jul 14, 2016 14:07
[2016-07-14] MEDS: AMLODIPINE 5 MG TAB PO SCH (15:31)
[2016-07-14] MEDS: NIFEdipine (XL) 60 MG TAB PO SCH (15:31)
[2016-07-14 19:44] VITALS: BP 155/70; RESP 18
--- NOTE | 2016-07-14 19:58 | PN ---
DATE: 07/14/2016 SUBJECTIVE: No new complaints. Has had bowel movement, was watery. No nausea, no vomiting, no fev er. OBJECTIVE: VITAL SIGNS: Temperature 98, heart rate 71, respirations 18, blood pressure 137/63, saturation 98% on room air. ABDOMEN: Soft. Wound is clean. The patient has had episodes of high blood pressure, got hydralazine IV. Now that the patient is p. o., they are starting to continue and to convert to p.o. pain medication that the patient has been t aking at home. ASSESSMENT AND PLAN: The patient is stable today. We are going to start a soft diet. If the patie nt tolerates soft diet and also the blood pressure is under control, patient can be discharged tomor row or any time she is okay by medical service. From surgical point of view, the patient is dischar geable to home. Dictated By: CAROLYNE PRADHAN/JOSE Conf#: [id number] DID#: [id number]
[2016-07-15] MEDS: ACCUCHECK XX SCH (01:39)
[2016-07-15] MEDS: LEVOTHYROXINE 100 MCG VIAL IV SCH (05:02)
[2016-07-15 05:34] LABS: POTASSIUM 4.2 mmol/L (3.5-5.1)
[2016-07-15 05:37] LABS: CREATININE 1.06 mg/dl (0.44-1.00)
[2016-07-15 05:38] LABS: CALCIUM 9.2 mg/dl (8.4-10.2); MAGNESIUM 1.2 mg/dl (1.7-2.5)
[2016-07-15 07:45] VITALS: BP 145/64; RESP 19
[2016-07-15] MEDS: INSULIN ASPART [NOVOLOG] 3 ML PEN SC SCH ×4 (07:50→21:00)
[2016-07-15] MEDS: AMLODIPINE 5 MG TAB PO SCH (08:25)
[2016-07-15] MEDS: NIFEdipine (XL) 60 MG TAB PO SCH (08:26)
[2016-07-15] MEDS: 1/2 NS + KCL 20 MEQ 1,000 ML IV SCH (13:00)
--- NOTE | 2016-07-15 13:16 | PN ---
DATE: 07/15/2016 SUBJECTIVE: She does not have any complaints. She has tolerated a soft diet, has had bowel movemen t, no nausea, no vomiting. OBJECTIVE: VITAL SIGNS: Temperature 98.6, heart rate is 81, respirations 19, blood 125/64, saturation 95% room air. ABDOMEN: Soft, wound is clean. EXTREMITIES: Legs no calf tenderness. LABS: Blood sugar is 165 today. BUN is 7, creatinine is 1.06. Sodium, potassium normal. ASSESSMENT: A 65-year-old female with a near obstructing carcinoma of the left colon and underwent a left colon resection. Postoperative did well. Eventually started having bowel movement, tolerate d soft diet. Wound is clean. PLAN: The patient can be discharged today, 07/15/2016. To be followed by Dr. Grant in h is office. The patient asked to call for an appointment. Dictated By: CAROLYNE HERNANDEZ MD PS/NTS Conf#: [id number] DID#: [id number]
[2016-07-15] MEDS ORDERED: HYDR-3498 PO (14:27)
[2016-07-15] MEDS ORDERED: MAGNESIUM SULFATE 4 GM/100 ML 100 ML IVPB ONE (14:30)
[2016-07-15 19:00] VITALS: BP 147/66; RESP 18
--- NOTE | 2016-07-19 20:48 | DS ---
DATE OF ADMISSION: 07/06/2016 DATE OF DISCHARGE: 07/15/2016 FINAL DIAGNOSES: 1. New obstructing transverse colon mass, status post left colon resection with mobilization of spl enic flexure. 2. Colon adenocarcinoma. 3. Diabetes mellitus type 2. 4. Hypertension. 5. Hypothyroidism. 6. Hyperlipidemia. BRIEF HISTORY: The patient is a 65-year-old [facility] female with past medical history positive for hypertension, diabetes, hypothyroidism and hyperlipidemic. The patient underwent a routine colonos copy and was noted to have a large mass in 03/2016, which appeared to be well-differentiated adenoca rcinoma per biopsy. Patient was evaluated by Dr. Grant in surgical consultation. Patient was broug ht to the hospital and underwent colon resection with mobilization of the splenic flexure of adenoca rcinoma of the colon. Postoperatively, the patient experienced significant pain and was admitted fo further evaluation and management. HOSPITAL COURSE: The patient was continued on a thoracic epidural pain control, was n.p.o., was con tinued on IV fluids, Zofran and was getting some nausea. The patient's bowel function returned to n ormal. Patient started on clear liquid diet. The patient's epidural catheter was discontinued. Maury welch was needing Hart and Dilaudid p.r.n. for pain. The patient was also continued on Synthroid f or hypothyroidism, IV and then switched to p.o. and the patient was able to take p.o. Blood sugar w as closely monitored and well controlled with NovoLog per sliding scale. Patient's blood pressure m edication was also controlled with clonidine. The patient on hydralazine p.r.n. and then the patien t was able to take p.o. patient's home antihypertensive medication and resume. Blood pressure was w ell controlled. The patient was able to take a soft diet and ambulate in the hallways and have a rodrick wel movement. The patient's condition improved and the patient was discharged home. DISCHARGE CONDITION: Hemodynamically stable. ACTIVITY: As patient tolerates with no lifting more than 25 pounds for 8 weeks. DIET: 2 g sodium, low fat, low cholesterol, 1800 ADA diet. DISCHARGE MEDICATIONS: The patient was given a prescription for Hart p.r.n. for pain. The patient is to continue on Norvasc, clonidine, glipizide, levothyroxine, lovastatin, metformin and nifedipin e. The patient is instructed to follow up with Dr. Grant in postoperative appointment in 1 week. Inter disciplinary plan of care was established for this patient. Plan of care was discussed with Dr. Sal reese. Dictated By: ADAM HOOVER DRY ROOM OPERATOR for HARRY LOMELI MD SR/NTS Conf#: [id number] DID#: [id number]
== END 2016-07-15 20:40 | disposition home or self-care (01) | DRG 330 ==
LOC: EDSTATUS 10:30 → REC 07-06 06:48 → MS1 07-06 13:14
PROVIDERS: ADMIT Surgery Surgical Oncology; ATTEND Surgery Surgical Oncology
PROC: 0DTG0ZZ Resection of Left Large Intestine, Open Approach (ICD-10-PCS; principal; 2016-07-06 09:00)
DX: C18.6 Malignant neoplasm of descending colon (principal); C78.7 Secondary malignant neoplasm of liver and intrahepatic bile duct; E11.9 Type 2 diabetes mellitus without complications; I10 Essential (primary) hypertension; E83.42 Hypomagnesemia; E03.9 Hypothyroidism, unspecified; Z87.891 Personal history of nicotine dependence
CPT/HCPCS: 71010; 80048; 82962; 83735; 84100; 85025; 85610; 85730; 86850; 86900; 86901; 86920; 87086; 88307; 93005; 97110; 97116; 97162; 97530; J0131; J0295; J0360; J1100; J1170; J1644; J1815; J2250; J2270; J2274; J2370; J2405; J2543; J2710; J2765; J2795; J3010; J3475; J3480; J7030

== ENCOUNTER 2016-09-24 07:17 | Day surgery (SDC) | payer OTHER ==
[~2016-09-24] VITALS: Ht 167.6 cm; Wt 90.3 kg
[~2016-09-24 07:17] MED LIST changes: +AMLO-145 PO; +CLON-379 PO; -CLONIDINE; +GLU5XL PO; +HYDR-3498 PO; +LEVO50TA74 PO; +LOVA40TA PO; +METF1000 PO; -METFORMIN; +NIFE60TA7 PO
[2016-09-24 09:13] VITALS: BP 200/96; RESP 16
[2016-09-24 09:15] VITALS: Ht 167.6 cm; Wt 90.3 kg
[2016-09-24] MEDS ORDERED: hydrALAzine 20 MG INJ IV ONE (09:30)
[2016-09-24] MEDS ORDERED: INSULIN ASPART [NOVOLOG] 3 ML PEN SC ONE ×2 (10:00→11:00)
[2016-09-24 10:09] VITALS: BP 134/56
[2016-09-24] MEDS ORDERED: LIDOCAINE 1%/EPI 30 ML INJ ONE (11:09)
[2016-09-24] MEDS ORDERED: HEPARIN 1000 UNITS/ML 10 ML INJ ONE (11:09)
[2016-09-24] MEDS ORDERED: MIDAZOLAM 1 MG/ML 2 ML INJ ONE (12:01)
[2016-09-24] MEDS ORDERED: CEFAZOLIN 1 GM/50 ML (PMX) 50 ML IVPB ONE (12:01)
[2016-09-24] MEDS ORDERED: FENTAnyl 50 MCG/ML VIAL ONE (12:01)
--- NOTE | 2016-09-24 12:48 | HP ---
DATE OF ADMISSION: 09/24/2016 REASON FOR EVALUATION: Uncontrolled hypertension and the blood sugars. CHIEF COMPLAINT AND HISTORY OF PRESENT ILLNESS: The patient is a 65-year-old female well known to lokesh lawrence from recent admission. The patient was recently diagnosed with a large colon mass in March 2016 , during a routine colonoscopy, which was subsequently found to be well-differentiated adenocarcinom a. The patient underwent colon resection with mobilization of splenic flexure for adenocarcinoma of the transverse colon. The patient was seen by Dr. Gonzalez and underwent metastatic workup, whic h included PET scan, which showed a large focus of increased metabolic activity in the central area of the right lobe of the liver, representing metastatic disease with multiple active lymph node harjit g the left descending colon, likely neoplastic disease. The patient received 1 dose of chemotherapy yesterday as an outpatient. The patient did have weakness, dizziness and vomiting. The patient is being admitted for Port-A-Cath placement for further chemotherapy. The patient during preop evalu ation was noted to have blood pressure of 200/96. The patient was feeling dizzy. IV hydralazine wa s given and patient is being monitored. Patient also was noted to have blood sugar of 270. The pat ient received insulin and we will do followup blood sugar. The patient denied any chest pain or anali rtness of breath. No history of recent fever or chills. No history of cough, sore throat. No hist ory of abdominal pain or leg edema. No history of focal weakness. REVIEW OF SYSTEMS: As above. Rest of review of systems were unremarkable. PAST SURGICAL HISTORY: Status post tonsillectomy and recent colon resection. FAMILY HISTORY: Patient's mother of CVA. SOCIAL HISTORY: Ex-smoker, quit several years ago. ALLERGIES: MORPHINE. PHYSICAL EXAMINATION: GENERAL: The patient is conscious, awake, alert. VITAL SIGNS: Upon arrival, blood pressure 200/96, temperature 97.3, pulse 80, respirations 16, O2 s aturation 97%. HEENT: No eye discharge or redness. Extraocular movements intact. Nose and ears normal. Orophary nx clear. NECK: No mass. CHEST: Fairly clear. CARDIOVASCULAR: S1, S2 normal. No murmur. ABDOMEN: Soft, nondistended, nontender. EXTREMITIES: No leg edema. Pedal pulses palpable. SKIN: Without acute rash. NEUROLOGIC: The patient is awake, alert, fairly oriented with no gross focal deficit. IMPRESSION: 1. Uncontrolled hypertension. 2. Uncontrolled diabetes. 3. Metastatic colon cancer. 4. Dyslipidemia. 5. Hypothyroidism. PLAN: The patient has been given IV hydralazine. We will give IV hydralazine on a p.r.n. basis. T he patient is n.p.o. Will resume Norvasc and nifedipine, which she had been taking at home. Will h old off on glipizide and will use insulin on p.r.n. basis. Will continue metformin and Levoxyl as a t home, including Lovastatin. If the patient's blood pressure and blood sugars are within acceptabl e range postoperatively, she will be discharged home and will have followup with Dr. Gonzalez as a n outpatient. Plan of care discussed with nursing staff as well as patient's daughter. Interventio nal radiologist, Dr. Recio, will be inserting Port-A-Cath. Dictated By: HARRY SUAREZ/JOSE Conf#: [id number] DID#: [id number]
--- NOTE | 2016-09-24 13:33 | RADRPT ---
PROCEDURE: ULTRASOUND-GUIDED VASCULAR ACCESS CLINICAL INDICATION: Port-A-Cath placement TECHNIQUE: Informed consent was obtained from the patient after a discussion of the risks, benefit s, and alternatives of the procedure. Risks include, but are not limited to bleeding and infection. The right internal jugular vein was found to be patent and compressible with stone scale and power D oppler. A picture of it was saved to the PACS. 1% lidocaine was utilized for anesthesia. Under di rect ultrasound guidance, a 21-gauge needle was advanced into the right internal jugular vein. A wi re was advanced through the micropuncture needle. The micropuncture needle was then removed over th e wire and a 5-Beninese catheter was advanced over the wire. COMPARISON: None. FINDINGS: Patent and compressible right internal jugular vein. IMPRESSION: Ultrasound guided vascular access for placement of a Port-A-Cath. RPTAT: EE Physician Broderick Date Time Electronically viewed and signed by Physician Broderick on 09/24/2016 13:33 /
--- NOTE | 2016-09-24 13:33 | RADRPT ---
PROCEDURE: RIGHT INTERNAL JUGULAR PORT PLACEMENT CLINICAL INDICATION: IV access for chemotherapy FLUOROSCOPY TIME: 0.1 minute TECHNIQUE: The procedure, its potential risks, benefits and alternatives were explained. Risks, including but n ot limited to pain, bleeding, infection, thrombosis, embolism and arrhythmia were discussed and und erstood. Following this discussion with the patient, informed consent was obtained. The right internal jugular vein was imaged with ultrasound and was shown to be compressible, with no evidence of thrombus. An image of this vein was obtained and saved to the PACS system. The neck and chest wall were scrubbed, draped and prepped in a sterile manner. The procedure was ca rried out under aseptic conditions. 1% lidocaine with epinephrine was utilized for local anesthesia . Following the standard prep, and under ultrasound guidance, the right internal jugular vein was punctured using anterior single wall micropuncture technique, and a micropuncture catheter was adva nced into the superior vena cava. Following this, an appropriate site on the anterior chest wall w as selected for port placement. The skin over the port placement site was then anesthetized. The s kin was then incised. Deep anesthesia was then given. Using blunt dissection technique, a pocket w as created in the subcutaneous soft tissue. Following this, a tract connecting the port pocket with the neck entry site was anesthetized. A 6 Albanian catheter was then pulled through the subcutaneous tract. Exchange of the micropuncture catheter was then done for a peel-away sheath. The catheter was then advanced through the sheath, the sheath was removed and the catheter was positioned with it s tip at the cavoatrial junction. Fluoroscopy was utilized to guide placement of the catheter. An im age of its final position was saved to the PACS system. The proximal end of the catheter was then tr immed and attached to a power injectable dual lumen chest wall port. The catheter and the port were then heparinized. The port was then placed within the pocket blank. The wound was then irrigated, and was dried. The wound was then closed using interrupted 3-0 Vicryl sutures, and a running subde rmal 4-0 Vicryl suture. Then over this, Dermabond was applied. A 4-0 Vicryl suture was placed to c lose the neck entry site, over which Dermabond was applied. The patient tolerated the procedure well . COMPARISON: none FINDINGS: as above. IMPRESSION: Placement of power injectable single lumen right chest wall port, as above. The catheter is ready for use. RPTAT: EE Chriss Recio, Physician Date Time Electronically viewed and signed by Chriss Recio, Physician on 09/24/2016 13:32 /
[2016-09-24 13:35] VITALS: BP 145/58; PULSE 94; RESP 14
[2016-09-24 14:35] VITALS: BP 136/63; PULSE 93; RESP 16
== END 2016-09-24 14:41 | disposition home or self-care (01) ==
LOC: SDS 07:17
PROVIDERS: ATTEND Internal Medicine Hematology & Oncology
DX: C18.9 Malignant neoplasm of colon, unspecified (principal); E11.9 Type 2 diabetes mellitus without complications; I10 Essential (primary) hypertension; E78.5 Hyperlipidemia, unspecified; E03.9 Hypothyroidism, unspecified; E66.9 Obesity, unspecified; Z68.32 Body mass index [BMI] 32.0-32.9, adult
CPT/HCPCS: 36561; 76942; 82962; C1769; C1788; J0360; J0690; J1644; J1815; J2250; J3010